=== PATIENT | female | born 1945 | race Caucasian/White ===

== ENCOUNTER 2024-02-28 20:17 | Inpatient (IN) | payer MEDICARE, MEDICAID ==
[~2024-02-28] VITALS: Ht 167.6 cm; Wt 76.7 kg
[2024-02-28 20:36] VITALS: PULSE 66; RESP 19; O2SAT 100
[2024-02-28] MEDS ORDERED: MIDAZOLAM 100MG/100ML PMX 100 ML IV PRN (20:45)
[2024-02-28] MEDS: ETOMIDATE 2MG/ML 10ML VIAL IV ONE (21:00)
[2024-02-28] MEDS: ROCURONIUM BROMIDE 10MG/ML VIAL 5ML IV ONE (21:00)
[2024-02-28 21:05] LABS: HEMATOCRIT. 38.1 % (36.0-48.0); HEMOGLOBIN. 11.1 g/dL (12.0-16.0); MEAN CORPUSCULAR HEMOGLOBIN 26.1 pg (28.0-32.0); MEAN CORPUSCULAR HGB CONC 29.2 g/dL (31.0-37.0); MEAN CORPUSCULAR VOLUME 89.2 fL (81.0-99.0); PLATELET 215 x1000/uL (130-400); RED BLOOD CELL COUNT 4.28 mill/uL (4.2-5.4); RED CELL DISTRIBUTION WIDTH 25.1 % (11.6-14.6); WHITE BLOOD COUNT 6.8 x1000/uL (4.5-11.0)
[2024-02-28 21:07] LABS: DIFFERENTIAL COMMENT 1
[2024-02-28 21:10] LABS: CHLORIDE 107 mEq/L (98-107); SODIUM 135 mEq/L (136-145)
[2024-02-28 21:11] LABS: CALCIUM 8.9 mg/dL (8.7-10.4); CARBON DIOXIDE 16 mEq/L (21-32)
[2024-02-28] MEDS: MIDAZOLAM 100MG/100ML PMX 100 ML IV PRN (21:12)
[2024-02-28 21:16] LABS: CREATININE 1.8 mg/dL (0.6-1.0); GLUCOSE 69 mg/dL (70-105); UREA NITROGEN BLOOD 32 mg/dL (9-23)
[2024-02-28 21:17] LABS: TROPONIN I HIGH SENSITIVITY 29 ng/L (3.0-34)
[2024-02-28] MEDS ORDERED: AZITHROMYCIN 500MG/250ML 250 ML IV STA (21:21)
[2024-02-28] MEDS: CEFTRIAXONE 1GM/50ML 50 ML IV NR (21:37)
[2024-02-28 21:42] LABS: BG BASE EXCESS -15.8 mmol/L (-2.0-3.0); BG CARBOXYHEMOGLOBIN 0.7 % (0.5-1.5); BG DEOXYHEMOGLOBIN 0.9 % (0.0-5.0); BG FRACTION INSPIRED OXYGEN 100; BG HCO3 ACT 13.5 mmol/L (21.0-28.0); BG METHEMOGLOBIN 0.1 % (0.5-1.5); BG OXYGEN SATURATION 99.1 % (94.0-98.0); BG OXYHEMOGLOBIN 98.3 % (94.0-98.0); BG PCO2 45.4 mmHg (32.0-45.0); BG PO2 165.4 mmHg (83.0-108.0); BG SAMPLE SITE LEFT RADIAL; BG TOTAL HEMOGLOBIN 11.7 g/dL (12.0-16.0); BG VENT MODE VENT - AC
[2024-02-28 21:42] LABS: PLATELET ESTIMATE NORMAL
[2024-02-28 21:43] LABS: ANISOCYTOSIS 2+
[2024-02-28 21:45] LABS: POTASSIUM 6.4 mEq/L (3.5-5.1)
[2024-02-28] MEDS: INSULIN REGULAR (HUMULIN R) 1000UNITS/10ML VIAL IV NR (21:51)
[2024-02-28] MEDS: DOXYCYCLINE 100MG/100ML 100 ML IV NR (22:08)
[2024-02-28] MEDS: ALBUTEROL (0.083%) 2.5MG/3ML NEB HHN SCH (22:38)
[2024-02-28 22:39] VITALS: PULSE 58; RESP 19; O2SAT 100
[2024-02-28 23:08] VITALS: PULSE 60; RESP 20; O2SAT 100
[2024-02-28] MEDS: DEXTROSE 50% WATER 50ML SYRINGE IV NR (23:09)
[2024-02-28] MEDS: CALCIUM GLUCONATE 1GM PREMIX 50 ML IV NR (23:09)
[2024-02-29] VITALS (74 sets, daily range): BP systolic 101–160; BP diastolic 49–78; PULSE 47–87; RESP 16–23; TEMP 36.44736–36.9474; O2SAT 90–100
[2024-02-29] MEDS: SODIUM BICARBONATE 8.4% 50MEQ/50ML SYR IV NR ×2 (00:08→05:44)
[2024-02-29 00:25] LABS: CALCIUM 8.7 mg/dL (8.7-10.4)
[2024-02-29 00:29] LABS: CREATININE 1.8 mg/dL (0.6-1.0)
[2024-02-29 01:02] LABS: POTASSIUM 6.2 mEq/L (3.5-5.1)
[2024-02-29] MEDS: DEXT 5%/0.9% NACL 1,000 ML IV SCH (01:58)
[2024-02-29] MEDS: SODIUM POLYSTYRENE SULFONATE 15 G/60 ML BOT PO NR (02:41)
[2024-02-29] MEDS: METRONIDAZOLE 500 MG PREMIX 100 ML IV SCH ×2 (05:09→16:14)
[2024-02-29] MEDS: CALCIUM CHLORIDE 1GM/10ML SYR IV NR (05:44)
[2024-02-29] MEDS: FUROSEMIDE 40MG/4ML VIAL IVP NR (05:44)
[2024-02-29] MEDS: INSULIN REGULAR (HUMULIN R) 1000UNITS/10ML VIAL IV NR (05:45)
[2024-02-29] MEDS ORDERED: DEXMEDETOMIDINE 400 MCG/100 ML 100 ML IV PRN (05:45)
[2024-02-29] MEDS: DEXTROSE 50% WATER 50ML SYRINGE IV NR (05:48)
[2024-02-29 06:29] LABS: BG BASE EXCESS -6.3 mmol/L (-2.0-3.0); BG CARBOXYHEMOGLOBIN 0.6 % (0.5-1.5); BG DEOXYHEMOGLOBIN 0.8 % (0.0-5.0); BG FRACTION INSPIRED OXYGEN 90; BG HCO3 ACT 20.5 mmol/L (21.0-28.0); BG METHEMOGLOBIN 0.3 % (0.5-1.5); BG OXYGEN SATURATION 99.2 % (94.0-98.0); BG OXYHEMOGLOBIN 98.3 % (94.0-98.0); BG PH 7.266 (7.350-7.450); BG PO2 152.3 mmHg (83.0-108.0); BG SAMPLE SITE RIGHT BRACHIAL; BG TOTAL HEMOGLOBIN 11.3 g/dL (12.0-16.0); BG TOTAL RESPIRATORY RATE 16 b/min; BG VENT MODE VENT - AC
[2024-02-29 06:31] LABS: CHLORIDE 108 mEq/L (98-107); POTASSIUM 5.6 mEq/L (3.5-5.1); SODIUM 139 mEq/L (136-145)
[2024-02-29 06:32] LABS: CALCIUM 8.8 mg/dL (8.7-10.4); CARBON DIOXIDE 19 mEq/L (21-32); HEMATOCRIT. 36.8 % (36.0-48.0); HEMOGLOBIN. 10.9 g/dL (12.0-16.0); MEAN CORPUSCULAR HGB CONC 29.6 g/dL (31.0-37.0); MEAN CORPUSCULAR VOLUME 87.8 fL (81.0-99.0); MEAN PLATELET VOLUME 7.9 fl (7.4-10.4); PLATELET 183 x1000/uL (130-400); RED CELL DISTRIBUTION WIDTH 24.9 % (11.6-14.6); WHITE BLOOD COUNT 9.1 x1000/uL (4.5-11.0)
[2024-02-29 06:36] LABS: IRON 29 ug/dL (50-170)
[2024-02-29 06:37] LABS: CREATININE 1.8 mg/dL (0.6-1.0); GLUCOSE 103 mg/dL (70-105); TRIGLYCERIDE 76 mg/dL (0-150)
[2024-02-29 06:38] LABS: ALANINE AMINOTRANSFERASE 133 IU/L (10-49); LDL CHOLESTEROL 63 mg/dL (5-100); PROTEIN TOTAL 8.2 g/dL (6.0-8.3); TOTAL IRON BINDING CAPACITY 165 ug/dl (250-425); UREA NITROGEN BLOOD 33 mg/dL (9-23)
[2024-02-29 06:39] LABS: ASPARTATE AMINOTRANSFERASE 693 IU/L (<34); BILIRUBIN DIRECT 0.8 mg/dL (<=3.0); CHOLESTEROL 103 mg/dL (<200); HDL CHOLESTEROL 21 mg/dL (>65); PHOSPHORUS 5.1 mg/dL (2.5-4.9); T4 FREE 1.29 ng/dL (0.89-1.76)
[2024-02-29 06:40] LABS: BILIRUBIN TOTAL 1.3 mg/dL (0.1-1.0); THYROID STIMULATING HORMONE 3.49 uIU/mL (0.55-4.78)
[2024-02-29] MEDS ORDERED: MIDAZOLAM 100MG/100ML PMX 100 ML IV PRN (07:00)
[2024-02-29] MEDS: VANCOMYCIN 1.25GM PMX (XELLIA) 250 ML IV NR (08:03)
[2024-02-29 08:31] LABS: DIFFERENTIAL COMMENT 1
[2024-02-29] MEDS: IPRATROPIUM/ALBUTEROL 0.5-3(2.5)MG/3ML NEB HHN SCH (08:54)
[2024-02-29 09:09] LABS: BG BASE EXCESS -8.6 mmol/L (-2.0-3.0); BG CARBOXYHEMOGLOBIN 0.9 % (0.5-1.5); BG DEOXYHEMOGLOBIN 2.7 % (0.0-5.0); BG FRACTION INSPIRED OXYGEN 90; BG HCO3 ACT 18.3 mmol/L (21.0-28.0); BG METHEMOGLOBIN 0.3 % (0.5-1.5); BG OXYGEN SATURATION 97.3 % (94.0-98.0); BG OXYHEMOGLOBIN 96.1 % (94.0-98.0); BG PCO2 43.4 mmHg (32.0-45.0); BG PH 7.244 (7.350-7.450); BG SAMPLE SITE RIGHT BRACHIAL; BG TOTAL HEMOGLOBIN 11.3 g/dL (12.0-16.0)
[2024-02-29 09:21] LABS: *AMPHETAMINES SCREEN URINE NEGATIVE (NEGATIVE)
[2024-02-29 09:22] LABS: *BARBITURATES SCREEN URINE NEGATIVE (NEGATIVE); *BENZODIAZEPINES SCREEN URINE PRESUMPTIVE POSITIVE (NEGATIVE); *COCAINE SCREEN URINE NEGATIVE (NEGATIVE); CANNABINOID URINE SCREEN NEGATIVE (NEGATIVE); ECSTASY MDMA SCREEN URINE NEGATIVE (NEGATIVE); METHADONE URINE SCREEN NEGATIVE (NEGATIVE); OPIATES URINE SCREEN NEGATIVE (NEGATIVE); PHENCYCLIDINE URINE SCREEN NEGATIVE (NEGATIVE)
[2024-02-29] MEDS: FAMOTIDINE 20MG/2ML VIAL IV SCH (09:58)
[2024-02-29 09:59] LABS: LACTIC ACID 4.4 mmol/L (0.4-2.0)
[2024-02-29] MEDS: HEPARIN 5000 UNITS/ML VIAL SUBCUT SCH (09:59)
[2024-02-29] MEDS: DOXYCYCLINE 100MG/100ML 100 ML IV SCH (12:39)
[2024-02-29] MEDS: SODIUM CHLORIDE 3% FOR INH 15ML NEB INH SCH (12:47)
[2024-02-29 13:59] LABS: CALCIUM 8.8 mg/dL (8.7-10.4)
[2024-02-29 14:03] LABS: CREATININE 1.9 mg/dL (0.6-1.0)
[2024-02-29] MEDS: ACETYLCYSTEINE 200MG/ML 20% VIAL 4ML INH SCH (16:50)
[2024-02-29 17:03] LABS: ANISOCYTOSIS 4+; OVALOCYTES 1+; PLATELET ESTIMATE NORMAL
[2024-02-29 17:11] LABS: INR 1.8; PARTIAL THROMBOPLASTIN TIME 35.6 sec (23.4-31.0); PROTHROMBIN TIME 19.5 sec (9.6-11.0)
[2024-02-29] MEDS ORDERED: CEFTRIAXONE 1GM/50ML 50 ML IV SCH (21:00)
[2024-03-01] VITALS (107 sets, daily range): BP systolic 105–143; BP diastolic 48–91; PULSE 76–95; RESP 16–25; TEMP 36.50292–36.72516; O2SAT 89–100
[2024-03-01] MEDS: CEFTRIAXONE 1GM/50ML 50 ML IV SCH (01:47)
[2024-03-01] MEDS: VANCOMYCIN 750MG/150ML (BAXTER) IV SCH (09:00)
[2024-03-01 09:13] LABS: CLARITY URINE TURBID (CLEAR); COLOR URINE DARK YELLOW (YELLOW); GLUCOSE URINE NEGATIVE (NEGATIVE); KETONES URINE NEGATIVE (NEGATIVE); LEUKOCYTE ESTERASE URINE 2+ (NEGATIVE); NITRITE URINE NEGATIVE (NEGATIVE); OCCULT BLOOD URINE 3+ (NEGATIVE); PROTEIN URINE 1+ (NEGATIVE); SPECIFIC GRAVITY URINE 1.016 (1.005-1.030)
[2024-03-01 09:39] LABS: CREATININE URINE RANDOM 48.8 mg/dL
[2024-03-01 09:49] LABS: SQUAMOUS EPITHELIAL CELL URINE NONE SEEN /lpf (RARE/1+); YEAST URINE 2+
[2024-03-01 09:50] LABS: BACTERIA URINE 2+; RBC URINE 25-50 /hpf (0-2)
[2024-03-01 09:51] LABS: MUCUS URINE TRACE /lpf (< = 2+)
[2024-03-01 10:09] LABS: BG BASE EXCESS -3.6 mmol/L (-2.0-3.0); BG CARBOXYHEMOGLOBIN 0.3 % (0.5-1.5); BG DEOXYHEMOGLOBIN 0.7 % (0.0-5.0); BG FRACTION INSPIRED OXYGEN 80; BG HCO3 ACT 20.5 mmol/L (21.0-28.0); BG OXYGEN SATURATION 99.3 % (94.0-98.0); BG PCO2 33.4 mmHg (32.0-45.0); BG PH 7.405 (7.350-7.450); BG PO2 148.4 mmHg (83.0-108.0); BG SAMPLE SITE LEFT RADIAL; BG TOTAL RESPIRATORY RATE 20 b/min; BG VENT MODE VENT - AC
[2024-03-01] MEDS: DOXYCYCLINE 100MG/100ML 100 ML IV SCH (11:29)
[2024-03-01] MEDS: SODIUM CHLORIDE 0.9% 1,000 ML IV SCH (13:00)
[2024-03-01 13:36] LABS: HEMATOCRIT. 35.8 % (36.0-48.0); HEMOGLOBIN. 10.5 g/dL (12.0-16.0); MEAN CORPUSCULAR HEMOGLOBIN 25.3 pg (28.0-32.0); MEAN CORPUSCULAR HGB CONC 29.2 g/dL (31.0-37.0); MEAN CORPUSCULAR VOLUME 86.6 fL (81.0-99.0); MEAN PLATELET VOLUME 7.6 fl (7.4-10.4); PLATELET 146 x1000/uL (130-400); RED BLOOD CELL COUNT 4.14 mill/uL (4.2-5.4); RED CELL DISTRIBUTION WIDTH 25.2 % (11.6-14.6); WHITE BLOOD COUNT 15.9 x1000/uL (4.5-11.0)
[2024-03-01 13:43] LABS: DIFFERENTIAL COMMENT 1; POTASSIUM 5.8 mEq/L (3.5-5.1)
[2024-03-01 13:44] LABS: CALCIUM 8.6 mg/dL (8.7-10.4)
[2024-03-01 13:46] LABS: INR 1.9; PROTHROMBIN TIME 20.1 sec (9.6-11.0)
[2024-03-01 13:49] LABS: CREATININE 1.8 mg/dL (0.6-1.0)
[2024-03-01] MEDS ORDERED: ALBUTEROL (0.083%) 2.5MG/3ML NEB HHN NR (14:00)
[2024-03-01] MEDS: SODIUM BICARBONATE 8.4% 50MEQ/50ML SYR IV NR (14:15)
[2024-03-01] MEDS: CALCIUM CHLORIDE 1GM/10ML SYR IV NR (14:15)
[2024-03-01] MEDS: SODIUM ZIRCONIUM CYCLOSILICATE 10GM/PACKET PO NR (16:09)
[2024-03-01 20:07] LABS: ANISOCYTOSIS 4+; GIANT PLATELETS 1+; PLATELET ESTIMATE NORMAL
[2024-03-01 20:08] LABS: OVALOCYTES 1+
[2024-03-01 21:29] LABS: POTASSIUM 4.7 mEq/L (3.5-5.1)
[2024-03-01] MEDS: CEFTRIAXONE 1GM/50ML 50ML IV SCH (21:42)
[2024-03-02] VITALS (107 sets, daily range): BP systolic 98–147; BP diastolic 49–111; PULSE 58–91; RESP 18–25; TEMP 35.89176–36.78072; O2SAT 80–100
[2024-03-02] MEDS: SODIUM CHLORIDE 3% FOR INH 4ML NEB INH SCH (00:26)
[2024-03-02 05:33] LABS: HEMATOCRIT 29.2 % (36.0-48.0); HEMOGLOBIN 9.3 g/dL (12.0-16.0); MEAN CORPUSCULAR HGB CONC 32.1 g/dL (31.0-37.0); PLATELET 151 x1000/uL (130-400); RED CELL DISTRIBUTION WIDTH 24.7 % (11.6-14.6); WHITE BLOOD COUNT 7.4 x1000/uL (4.5-11.0)
[2024-03-02 05:41] LABS: CHLORIDE 112 mEq/L (98-107); POTASSIUM 4.4 mEq/L (3.5-5.1); SODIUM 142 mEq/L (136-145)
[2024-03-02 05:43] LABS: CALCIUM 8.5 mg/dL (8.7-10.4); CARBON DIOXIDE 23 mEq/L (21-32)
[2024-03-02 05:48] LABS: CREATININE 1.4 mg/dL (0.6-1.0); GLUCOSE 108 mg/dL (70-105); UREA NITROGEN BLOOD 35 mg/dL (9-23)
[2024-03-02 05:50] LABS: ALANINE AMINOTRANSFERASE 194 IU/L (10-49); ALBUMIN 2.3 g/dL (3.2-4.8); ASPARTATE AMINOTRANSFERASE 544 IU/L (<34); BILIRUBIN TOTAL 1.3 mg/dL (0.1-1.0); PHOSPHORUS 2.5 mg/dL (2.5-4.9); PROTEIN TOTAL 6.5 g/dL (6.0-8.3)
[2024-03-02 18:05] LABS: AMMONIA 20 uMol/L (<32)
[2024-03-03] VITALS (103 sets, daily range): BP systolic 83–147; BP diastolic 41–95; PULSE 27–93; RESP 16–24; TEMP 36.78072–37.44744; O2SAT 91–100
[2024-03-03 04:56] LABS: HEMATOCRIT 34.3 % (36.0-48.0); HEMOGLOBIN 10.5 g/dL (12.0-16.0); MEAN CORPUSCULAR HEMOGLOBIN 26.1 pg (28.0-32.0); MEAN CORPUSCULAR HGB CONC 30.6 g/dL (31.0-37.0); MEAN CORPUSCULAR VOLUME 85.3 fL (81.0-99.0); PLATELET 116 x1000/uL (130-400); RED BLOOD CELL COUNT 4.03 mill/uL (4.2-5.4); RED CELL DISTRIBUTION WIDTH 25.4 % (11.6-14.6); WHITE BLOOD COUNT 8.5 x1000/uL (4.5-11.0)
[2024-03-03 05:24] LABS: CHLORIDE 115 mEq/L (98-107); POTASSIUM 4.3 mEq/L (3.5-5.1); SODIUM 144 mEq/L (136-145)
[2024-03-03 05:25] LABS: CALCIUM 8.8 mg/dL (8.7-10.4); CARBON DIOXIDE 21 mEq/L (21-32)
[2024-03-03 05:30] LABS: CREATININE 1.2 mg/dL (0.6-1.0); GLUCOSE 94 mg/dL (70-105); UREA NITROGEN BLOOD 29 mg/dL (9-23)
[2024-03-03 05:31] LABS: ALBUMIN 2.3 g/dL (3.2-4.8); LACTATE DEHYDROGENASE 237 IU/L (120-246)
[2024-03-03 05:32] LABS: PHOSPHORUS 2.5 mg/dL (2.5-4.9)
[2024-03-03] MEDS ORDERED: MICAFUNGIN 100 MG in SODIUM CHLORIDE 0.9% 100 ML IV SCH (08:30)
[2024-03-03 11:55] LABS: INR 1.5; PROTHROMBIN TIME 16.7 sec (9.6-11.0)
[2024-03-03] MEDS: DEXMEDETOMIDINE 400 MCG/100 ML 100 ML IV PRN (11:59)
[2024-03-03] MEDS: SODIUM CHLORIDE 0.9% 500 ML IV ONE (13:38)
[2024-03-03] MEDS: FLUCONAZOLE 200 MG/100ML BAG 100 ML IV SCH (13:39)
[2024-03-03] MEDS: MIDODRINE HCL 5MG TABLET PO SCH (14:59)
[2024-03-03 16:17] LABS: PROTEIN BODY FLUID 2.8 gm/dL
[2024-03-03 21:59] LABS: BODY FLUID MONOCYTES 3 %; BODY FLUID RBC 1020 /cu mm (0-2000); BODY FLUID WBC 255 /cu mm (0-200)
[2024-03-04] VITALS (96 sets, daily range): BP systolic 90–156; BP diastolic 43–101; PULSE 44–89; RESP 16–25; TEMP 36.83628–37.16964; O2SAT 82–100
[2024-03-04 05:39] LABS: BASOPHILS % 0.5 % (0.0-2.0); EOSINOPHILS % 1.3 % (0.0-5.0); HEMATOCRIT. 32.6 % (36.0-48.0); HEMOGLOBIN. 10.1 g/dL (12.0-16.0); LYMPHOCYTES % 8.9 % (20.0-50.0); MEAN CORPUSCULAR HEMOGLOBIN 26.2 pg (28.0-32.0); MEAN CORPUSCULAR HGB CONC 30.9 g/dL (31.0-37.0); MEAN CORPUSCULAR VOLUME 84.8 fL (81.0-99.0); MEAN PLATELET VOLUME 8.2 fl (7.4-10.4); MONOCYTES % 10.5 % (2.0-8.0); NEUTROPHILS % 78.8 % (40.0-76.0); PLATELET 141 x1000/uL (130-400); RED BLOOD CELL COUNT 3.84 mill/uL (4.2-5.4); RED CELL DISTRIBUTION WIDTH 25.3 % (11.6-14.6); WHITE BLOOD COUNT 6.3 x1000/uL (4.5-11.0)
[2024-03-04 05:51] LABS: CHLORIDE 116 mEq/L (98-107); POTASSIUM 4.1 mEq/L (3.5-5.1); SODIUM 144 mEq/L (136-145)
[2024-03-04 05:55] LABS: CARBON DIOXIDE 22 mEq/L (21-32)
[2024-03-04 05:56] LABS: CALCIUM 8.5 mg/dL (8.7-10.4)
[2024-03-04 05:59] LABS: ALANINE AMINOTRANSFERASE 88 IU/L (10-49)
[2024-03-04 06:00] LABS: CREATININE 1.1 mg/dL (0.6-1.0); GLUCOSE 112 mg/dL (70-105)
[2024-03-04 06:01] LABS: UREA NITROGEN BLOOD 33 mg/dL (9-23)
[2024-03-04 06:02] LABS: ALBUMIN 2.2 g/dL (3.2-4.8); ASPARTATE AMINOTRANSFERASE 132 IU/L (<34)
[2024-03-04 06:03] LABS: PHOSPHORUS 2.6 mg/dL (2.5-4.9); PROTEIN TOTAL 6.4 g/dL (6.0-8.3)
[2024-03-04 06:24] LABS: DIFFERENTIAL COMMENT 1
[2024-03-04 07:44] LABS: INR 1.4; PROTHROMBIN TIME 15.6 sec (9.6-11.0)
[2024-03-04] MEDS: DOPAMINE 400MG/250ML PREMIX 250 ML IV PRN (09:51)
[2024-03-04 09:55] LABS: BG BASE EXCESS -1.3 mmol/L (-2.0-3.0); BG FRACTION INSPIRED OXYGEN 50; BG HCO3 ACT 22.7 mmol/L (21.0-28.0); BG PCO2 36.1 mmHg (32.0-45.0); BG PH 7.416 (7.350-7.450); BG PO2 98.6 mmHg (83.0-108.0); BG SAMPLE SITE RIGHT RADIAL; BG VENT MODE VENT - AC
[2024-03-04] MEDS: IPRATROPIUM/ALBUTEROL 0.5-3(2.5)MG/3ML NEB HHN PRN (09:55)
[2024-03-04] MEDS: MIDODRINE HCL 5MG TABLET PO SCH (14:00)
[2024-03-04 14:54] LABS: PROTEIN BODY FLUID 2.8 gm/dL
[2024-03-04 20:27] LABS: BODY FLUID MONOCYTES 3 %; BODY FLUID RBC 6038 /cu mm (0-2000); BODY FLUID WBC 150 /cu mm (0-200)
[2024-03-05] VITALS (91 sets, daily range): BP systolic 95–178; BP diastolic 46–127; PULSE 54–81; RESP 16–24; TEMP 36.33624–37.11408; O2SAT 94–100
[2024-03-05 05:32] LABS: HEMATOCRIT 35.5 % (36.0-48.0); HEMOGLOBIN 10.7 g/dL (12.0-16.0); MEAN CORPUSCULAR HEMOGLOBIN 25.7 pg (28.0-32.0); MEAN CORPUSCULAR HGB CONC 30.2 g/dL (31.0-37.0); MEAN CORPUSCULAR VOLUME 85.1 fL (81.0-99.0); PLATELET 143 x1000/uL (130-400); RED BLOOD CELL COUNT 4.17 mill/uL (4.2-5.4); RED CELL DISTRIBUTION WIDTH 24.8 % (11.6-14.6); WHITE BLOOD COUNT 7.9 x1000/uL (4.5-11.0)
[2024-03-05 05:43] LABS: CHLORIDE 115 mEq/L (98-107); SODIUM 144 mEq/L (136-145)
[2024-03-05 05:45] LABS: CARBON DIOXIDE 20 mEq/L (21-32)
[2024-03-05 05:46] LABS: CALCIUM 8.8 mg/dL (8.7-10.4)
[2024-03-05 05:50] LABS: CREATININE 1.1 mg/dL (0.6-1.0); GLUCOSE 105 mg/dL (70-105)
[2024-03-05 05:51] LABS: ALANINE AMINOTRANSFERASE 73 IU/L (10-49); UREA NITROGEN BLOOD 32 mg/dL (9-23)
[2024-03-05 05:52] LABS: ALBUMIN 2.4 g/dL (3.2-4.8); ASPARTATE AMINOTRANSFERASE 87 IU/L (<34)
[2024-03-05 05:53] LABS: BILIRUBIN TOTAL 0.9 mg/dL (0.1-1.0); PHOSPHORUS 2.8 mg/dL (2.5-4.9); PROTEIN TOTAL 7.1 g/dL (6.0-8.3)
[2024-03-05 10:13] LABS: BG BASE EXCESS -3.9 mmol/L (-2.0-3.0); BG CARBOXYHEMOGLOBIN 0.6 % (0.5-1.5); BG DEOXYHEMOGLOBIN 5.6 % (0.0-5.0); BG FRACTION INSPIRED OXYGEN 40; BG HCO3 ACT 20.7 mmol/L (21.0-28.0); BG METHEMOGLOBIN 0.3 % (0.5-1.5); BG OXYGEN SATURATION 94.3 % (94.0-98.0); BG OXYHEMOGLOBIN 93.5 % (94.0-98.0); BG PCO2 35.8 mmHg (32.0-45.0); BG PH 7.379 (7.350-7.450); BG PO2 74.3 mmHg (83.0-108.0); BG SAMPLE SITE LEFT RADIAL; BG TOTAL HEMOGLOBIN 10.6 g/dL (12.0-16.0); BG VENT MODE VENT - AC
[2024-03-06] VITALS (82 sets, daily range): BP systolic 92–157; BP diastolic 41–123; PULSE 52–72; RESP 15–25; TEMP 36.61404–37.66968; O2SAT 93–100
[2024-03-06 04:43] LABS: CHLORIDE 118 mEq/L (98-107); POTASSIUM 3.8 mEq/L (3.5-5.1)
[2024-03-06 04:44] LABS: SODIUM 148 mEq/L (136-145)
[2024-03-06 04:45] LABS: CARBON DIOXIDE 23 mEq/L (21-32)
[2024-03-06 04:46] LABS: CALCIUM 8.6 mg/dL (8.7-10.4)
[2024-03-06 04:49] LABS: HEMATOCRIT 31.6 % (36.0-48.0); HEMOGLOBIN 9.7 g/dL (12.0-16.0); MEAN CORPUSCULAR HEMOGLOBIN 25.8 pg (28.0-32.0); MEAN CORPUSCULAR HGB CONC 30.8 g/dL (31.0-37.0); MEAN CORPUSCULAR VOLUME 83.6 fL (81.0-99.0); PLATELET 134 x1000/uL (130-400); RED BLOOD CELL COUNT 3.78 mill/uL (4.2-5.4); RED CELL DISTRIBUTION WIDTH 24.8 % (11.6-14.6); WHITE BLOOD COUNT 7.1 x1000/uL (4.5-11.0)
[2024-03-06 04:51] LABS: GLUCOSE 109 mg/dL (70-105); UREA NITROGEN BLOOD 37 mg/dL (9-23)
[2024-03-06 04:52] LABS: ALANINE AMINOTRANSFERASE 44 IU/L (10-49); ALBUMIN 2.1 g/dL (3.2-4.8); ASPARTATE AMINOTRANSFERASE 48 IU/L (<34)
[2024-03-06 04:53] LABS: BILIRUBIN TOTAL 0.7 mg/dL (0.1-1.0); PHOSPHORUS 3.1 mg/dL (2.5-4.9); PROTEIN TOTAL 6.1 g/dL (6.0-8.3)
[2024-03-06] MEDS: SODIUM BICARBONATE 4% 2.4MEQ/5ML VIAL IV ONE (08:37)
[2024-03-06] MEDS: LIDOCAINE HCL 1% 10 MG/ML 10ML VIAL ONE (08:37)
[2024-03-06] MEDS: POLYETHYLENE GLYCOL 3350 (17GM) 1 DOSE PACK PO SCH (09:19)
[2024-03-06 09:39] LABS: BG BASE EXCESS -2.7 mmol/L (-2.0-3.0); BG CARBOXYHEMOGLOBIN 0.8 % (0.5-1.5); BG DEOXYHEMOGLOBIN 2.5 % (0.0-5.0); BG FRACTION INSPIRED OXYGEN 40; BG HCO3 ACT 21.5 mmol/L (21.0-28.0); BG METHEMOGLOBIN 0.3 % (0.5-1.5); BG OXYGEN SATURATION 97.5 % (94.0-98.0); BG OXYHEMOGLOBIN 96.4 % (94.0-98.0); BG PCO2 35.2 mmHg (32.0-45.0); BG PH 7.404 (7.350-7.450); BG PO2 90.4 mmHg (83.0-108.0); BG SAMPLE SITE LEFT RADIAL; BG TOTAL HEMOGLOBIN 10.4 g/dL (12.0-16.0); BG TOTAL RESPIRATORY RATE 26 b/min; BG VENT MODE VENT - AC
[2024-03-06 12:18] LABS: BG BASE EXCESS -2.8 mmol/L (-2.0-3.0); BG CARBOXYHEMOGLOBIN 0.4 % (0.5-1.5); BG FRACTION INSPIRED OXYGEN 40; BG METHEMOGLOBIN 0.3 % (0.5-1.5); BG OXYHEMOGLOBIN 95.3 % (94.0-98.0); BG PCO2 32.9 mmHg (32.0-45.0); BG PH 7.423 (7.350-7.450); BG PO2 80.8 mmHg (83.0-108.0); BG SAMPLE SITE LEFT RADIAL; BG TOTAL HEMOGLOBIN 10.2 g/dL (12.0-16.0); BG VENT MODE VENT - CPAP
[2024-03-06] MEDS: METHYLPREDNISOLONE SOD SUCC 125MG/2ML (ACT-O-VIAL) IV NR (16:11)
[2024-03-06] MEDS ORDERED: HEPARIN 5000 UNITS/ML VIAL IV NR (18:00)
[2024-03-06 20:51] LABS: INR 1.2; PARTIAL THROMBOPLASTIN TIME 29.6 sec (23.4-31.0); PROTHROMBIN TIME 13.2 sec (9.6-11.0)
[2024-03-06] MEDS: HEPARIN 5000 UNITS/ML VIAL IV NR (22:02)
[2024-03-06] MEDS: MIDODRINE HCL 5MG TABLET PO SCH (22:07)
[2024-03-06] MEDS: METHYLPREDNISOLONE SOD SUCC 40MG/ML (ACT-O-VIAL) IV SCH (22:10)
[2024-03-06] MEDS: HEPARIN 25,000 UNITS PREMIX 250 ML IV PRN (22:13)
[2024-03-07] VITALS (90 sets, daily range): BP systolic 127–185; BP diastolic 43–83; PULSE 8–94; RESP 14–26; TEMP 36.89184–37.05852; O2SAT 89–100
[2024-03-07] MEDS ORDERED: HEPARIN 5000 UNITS/ML VIAL IV PRN ×2 (03:00)
[2024-03-07 04:01] LABS: CARBON DIOXIDE 22 mEq/L (21-32); CHLORIDE 117 mEq/L (98-107); POTASSIUM 3.9 mEq/L (3.5-5.1); SODIUM 147 mEq/L (136-145)
[2024-03-07 04:02] LABS: CALCIUM 8.8 mg/dL (8.7-10.4)
[2024-03-07 04:05] LABS: HEMATOCRIT 36.2 % (36.0-48.0); HEMOGLOBIN 10.7 g/dL (12.0-16.0); MEAN CORPUSCULAR HEMOGLOBIN 24.8 pg (28.0-32.0); MEAN CORPUSCULAR HGB CONC 29.4 g/dL (31.0-37.0); MEAN CORPUSCULAR VOLUME 84.2 fL (81.0-99.0); PLATELET 165 x1000/uL (130-400); WHITE BLOOD COUNT 6.2 x1000/uL (4.5-11.0)
[2024-03-07 04:07] LABS: CREATININE 1.1 mg/dL (0.6-1.0); GLUCOSE 196 mg/dL (70-105); UREA NITROGEN BLOOD 40 mg/dL (9-23)
[2024-03-07 04:08] LABS: ALANINE AMINOTRANSFERASE 41 IU/L (10-49)
[2024-03-07 04:09] LABS: ALBUMIN 2.7 g/dL (3.2-4.8); ASPARTATE AMINOTRANSFERASE 44 IU/L (<34); BILIRUBIN TOTAL 0.8 mg/dL (0.1-1.0); PHOSPHORUS 3.5 mg/dL (2.5-4.9); PROTEIN TOTAL 7.3 g/dL (6.0-8.3)
[2024-03-07] MEDS: DEXMEDETOMIDINE 400 MCG/100 ML 100 ML IV PRN (08:46)
[2024-03-07 09:25] LABS: BG BASE EXCESS -2.7 mmol/L (-2.0-3.0); BG CARBOXYHEMOGLOBIN 0.3 % (0.5-1.5); BG DEOXYHEMOGLOBIN 6.1 % (0.0-5.0); BG FRACTION INSPIRED OXYGEN 40; BG HCO3 ACT 23.1 mmol/L (21.0-28.0); BG METHEMOGLOBIN 0.3 % (0.5-1.5); BG OXYGEN SATURATION 93.9 % (94.0-98.0); BG OXYHEMOGLOBIN 93.3 % (94.0-98.0); BG PCO2 44.4 mmHg (32.0-45.0); BG PH 7.335 (7.350-7.450); BG PO2 74.9 mmHg (83.0-108.0); BG SAMPLE SITE LEFT RADIAL; BG TOTAL HEMOGLOBIN 12.1 g/dL (12.0-16.0); BG TOTAL RESPIRATORY RATE 29 b/min; BG VENT MODE VENT - SIMV
[2024-03-07 15:15] LABS: BG BASE EXCESS -2.9 mmol/L (-2.0-3.0); BG CARBOXYHEMOGLOBIN 0.8 % (0.5-1.5); BG DEOXYHEMOGLOBIN 5.1 % (0.0-5.0); BG FRACTION INSPIRED OXYGEN 40; BG HCO3 ACT 21.6 mmol/L (21.0-28.0); BG METHEMOGLOBIN 0.3 % (0.5-1.5); BG OXYGEN SATURATION 94.8 % (94.0-98.0); BG OXYHEMOGLOBIN 93.8 % (94.0-98.0); BG PCO2 36.7 mmHg (32.0-45.0); BG PH 7.388 (7.350-7.450); BG PO2 76.9 mmHg (83.0-108.0); BG SAMPLE SITE LEFT RADIAL; BG TOTAL HEMOGLOBIN 11.1 g/dL (12.0-16.0); BG VENT MODE VENT - CPAP
[2024-03-08] VITALS (88 sets, daily range): BP systolic 143–180; BP diastolic 30–65; PULSE 48–89; RESP 15–24; TEMP 36.33624–37.2252; O2SAT 94–100
[2024-03-08] MEDS: ZINC OXIDE 20% OINT 30GM TOP PRN (05:56)
[2024-03-08 06:48] LABS: CHLORIDE 115 mEq/L (98-107); POTASSIUM 3.9 mEq/L (3.5-5.1); SODIUM 147 mEq/L (136-145)
[2024-03-08 06:51] LABS: CARBON DIOXIDE 22 mEq/L (21-32)
[2024-03-08 06:52] LABS: CALCIUM 8.3 mg/dL (8.7-10.4)
[2024-03-08 06:56] LABS: GLUCOSE 186 mg/dL (70-105)
[2024-03-08 06:57] LABS: ALANINE AMINOTRANSFERASE 32 IU/L (10-49); UREA NITROGEN BLOOD 46 mg/dL (9-23)
[2024-03-08 06:58] LABS: ALBUMIN 2.5 g/dL (3.2-4.8); ASPARTATE AMINOTRANSFERASE 32 IU/L (<34)
[2024-03-08 06:59] LABS: BILIRUBIN TOTAL 0.7 mg/dL (0.1-1.0); PHOSPHORUS 3.4 mg/dL (2.5-4.9); PROTEIN TOTAL 6.7 g/dL (6.0-8.3)
[2024-03-08 07:00] LABS: HEMOGLOBIN 10.1 g/dL (12.0-16.0); MEAN CORPUSCULAR HEMOGLOBIN 26.2 pg (28.0-32.0); MEAN CORPUSCULAR HGB CONC 31.6 g/dL (31.0-37.0); MEAN CORPUSCULAR VOLUME 82.9 fL (81.0-99.0); PLATELET 160 x1000/uL (130-400); RED BLOOD CELL COUNT 3.86 mill/uL (4.2-5.4); RED CELL DISTRIBUTION WIDTH 24.6 % (11.6-14.6); WHITE BLOOD COUNT 5.6 x1000/uL (4.5-11.0)
[2024-03-08 09:22] LABS: BG BASE EXCESS -4.7 mmol/L (-2.0-3.0); BG CARBOXYHEMOGLOBIN 0.8 % (0.5-1.5); BG DEOXYHEMOGLOBIN 5.4 % (0.0-5.0); BG FRACTION INSPIRED OXYGEN 40; BG HCO3 ACT 19.4 mmol/L (21.0-28.0); BG METHEMOGLOBIN 0.3 % (0.5-1.5); BG OXYGEN SATURATION 94.5 % (94.0-98.0); BG OXYHEMOGLOBIN 93.5 % (94.0-98.0); BG PCO2 32.4 mmHg (32.0-45.0); BG PH 7.394 (7.350-7.450); BG PO2 75.1 mmHg (83.0-108.0); BG SAMPLE SITE LEFT FEMORAL; BG TOTAL HEMOGLOBIN 11.9 g/dL (12.0-16.0); BG VENT MODE VENT - AC
[2024-03-08] MEDS: AMLODIPINE 5MG TABLET PO NR (11:26)
[2024-03-08 14:25] LABS: BG BASE EXCESS -2.9 mmol/L (-2.0-3.0); BG CARBOXYHEMOGLOBIN 0.7 % (0.5-1.5); BG DEOXYHEMOGLOBIN 8.2 % (0.0-5.0); BG FRACTION INSPIRED OXYGEN 40; BG HCO3 ACT 21.2 mmol/L (21.0-28.0); BG METHEMOGLOBIN 0.3 % (0.5-1.5); BG OXYGEN SATURATION 91.7 % (94.0-98.0); BG OXYHEMOGLOBIN 90.8 % (94.0-98.0); BG PCO2 34.6 mmHg (32.0-45.0); BG PH 7.406 (7.350-7.450); BG PO2 65.9 mmHg (83.0-108.0); BG SAMPLE SITE LEFT RADIAL; BG TOTAL HEMOGLOBIN 11.2 g/dL (12.0-16.0); BG VENT MODE VENT - CPAP
[2024-03-08] MEDS ORDERED: HYDRALAZINE 20MG/ML VIAL IV PRN (19:45)
[2024-03-08] MEDS: SENNOSIDES/DOCUSATE SOD 8.6/50MG TABLET PO SCH (21:56)
[2024-03-09] VITALS (119 sets, daily range): BP systolic 73–197; BP diastolic 15–68; PULSE 69–94; RESP 1–28; TEMP 36.6696–37.11408; O2SAT 83–100
[2024-03-09 05:23] LABS: POTASSIUM 3.7 mEq/L (3.5-5.1)
[2024-03-09 05:24] LABS: CALCIUM 7.7 mg/dL (8.7-10.4)
[2024-03-09 05:28] LABS: CREATININE 1.1 mg/dL (0.6-1.0)
[2024-03-09 05:46] LABS: HEMATOCRIT 22.5 % (36.0-48.0); HEMOGLOBIN 7.2 g/dL (12.0-16.0); MEAN CORPUSCULAR HEMOGLOBIN 26.7 pg (28.0-32.0); MEAN CORPUSCULAR HGB CONC 32.2 g/dL (31.0-37.0); MEAN CORPUSCULAR VOLUME 82.7 fL (81.0-99.0); PLATELET 180 x1000/uL (130-400); RED BLOOD CELL COUNT 2.72 mill/uL (4.2-5.4); RED CELL DISTRIBUTION WIDTH 24.7 % (11.6-14.6); WHITE BLOOD COUNT 8.8 x1000/uL (4.5-11.0)
[2024-03-09] MEDS: AMLODIPINE 5MG TABLET PO SCH (09:00)
[2024-03-09] MEDS: NOREPINEPHRINE 8MG/250ML PMX 250 ML IV PRN (09:58)
[2024-03-09] MEDS: PANTOPRAZOLE SODIUM 40 MG/VIAL IV SCH (11:04)
[2024-03-09 11:07] LABS: HEMATOCRIT 20.5 % (36.0-48.0); HEMOGLOBIN 6.3 g/dL (12.0-16.0)
[2024-03-09] MEDS ORDERED: OCTREOTIDE 1,000 MCG in SODIUM CHLORIDE 0.9% 100 ML IV ONE (11:30)
[2024-03-09] MEDS ORDERED: OCTREOTIDE ACETATE 50 MCG/ML 1ML IV NR (12:30)
[2024-03-09 12:52] LABS: INR 1.3; PROTHROMBIN TIME 14.4 sec (9.6-11.0)
[2024-03-09 12:57] LABS: BG BASE EXCESS -8.4 mmol/L (-2.0-3.0); BG CARBOXYHEMOGLOBIN 1.2 % (0.5-1.5); BG FRACTION INSPIRED OXYGEN 100; BG METHEMOGLOBIN 0.3 % (0.5-1.5); BG OXYHEMOGLOBIN 98.5 % (94.0-98.0); BG PCO2 33.9 mmHg (32.0-45.0); BG PH 7.318 (7.350-7.450); BG PO2 339.3 mmHg (83.0-108.0); BG SAMPLE SITE RIGHT BRACHIAL; BG TOTAL HEMOGLOBIN 6.3 g/dL (12.0-16.0); BG VENT MODE VENT - AC
[2024-03-09] MEDS: PIPERACILLIN/TAZO 3.375G/50ML 50 ML IV SCH (13:21)
[2024-03-09] MEDS: PANTOPRAZOLE 80 MG in SODIUM CHLORIDE 0.9% 100 ML IV SCH (13:40)
[2024-03-09] MEDS: OCTREOTIDE ACETATE 50 MCG/ML 1ML IV NR (13:40)
[2024-03-09] MEDS: OCTREOTIDE 1,000 MCG in SODIUM CHLORIDE 0.9% 98 ML IV SCH (13:41)
[2024-03-09] MEDS: LACTULOSE 20G/30ML UDC PO SCH (17:48)
[2024-03-09 21:26] LABS: HEMOGLOBIN 8.1 g/dL (12.0-16.0)
[2024-03-10] VITALS (109 sets, daily range): BP systolic 89–166; BP diastolic 22–109; PULSE 54–81; RESP 16–23; TEMP 36.50292–37.83636; O2SAT 96–100
[2024-03-10 01:25] LABS: HEMATOCRIT 22.8 % (36.0-48.0); HEMOGLOBIN 7.5 g/dL (12.0-16.0)
[2024-03-10 05:40] LABS: HEMATOCRIT 22.3 % (36.0-48.0); HEMOGLOBIN 7.3 g/dL (12.0-16.0); MEAN CORPUSCULAR HEMOGLOBIN 28.7 pg (28.0-32.0); MEAN CORPUSCULAR HGB CONC 32.9 g/dL (31.0-37.0); MEAN CORPUSCULAR VOLUME 87.2 fL (81.0-99.0); PLATELET 133 x1000/uL (130-400); RED BLOOD CELL COUNT 2.56 mill/uL (4.2-5.4); RED CELL DISTRIBUTION WIDTH 20.5 % (11.6-14.6); WHITE BLOOD COUNT 16.4 x1000/uL (4.5-11.0)
[2024-03-10 05:54] LABS: CARBON DIOXIDE 23 mEq/L (21-32); CHLORIDE 116 mEq/L (98-107); POTASSIUM 4.5 mEq/L (3.5-5.1); SODIUM 147 mEq/L (136-145)
[2024-03-10 05:55] LABS: CALCIUM 7.3 mg/dL (8.7-10.4)
[2024-03-10 06:00] LABS: GLUCOSE 142 mg/dL (70-105); UREA NITROGEN BLOOD 73 mg/dL (9-23)
[2024-03-10 06:02] LABS: ALANINE AMINOTRANSFERASE 76 IU/L (10-49); ASPARTATE AMINOTRANSFERASE 185 IU/L (<34); BILIRUBIN DIRECT 0.9 mg/dL (<=3.0); BILIRUBIN TOTAL 1.4 mg/dL (0.1-1.0); PHOSPHORUS 4.5 mg/dL (2.5-4.9)
[2024-03-10 06:15] LABS: HEPATITIS B SURFACE ANTIGEN NEGATIVE (Negative)
[2024-03-10 06:35] LABS: HEPATITIS A AB IGM NEGATIVE (Negative)
[2024-03-10 06:36] LABS: HEPATITIS B CORE AB IGM NEGATIVE (Negative); HEPATITIS C AB NON REACTIVE (Neg) (Negative)
[2024-03-10 07:18] LABS: CREATININE 1.7 mg/dL (0.6-1.0)
[2024-03-10] MEDS: DEXTROSE 5% WATER 1,000 ML IV SCH (08:19)
[2024-03-10] MEDS ORDERED: PREDNISONE 20MG TABLET PO SCH (09:00)
[2024-03-10] MEDS: BISACODYL 10MG SUPP PR SCH (12:26)
[2024-03-10] MEDS: OCTREOTIDE 1,000 MCG in SODIUM CHLORIDE 0.9% 98 ML IV SCH (14:25)
[2024-03-10] MEDS: NA PHOS,M-B/NA PHOS,DI-BA ENEMA 118ML PR SCH (14:25)
[2024-03-10] MEDS ORDERED: PANTOPRAZOLE SODIUM 40 MG/VIAL IV SCH (21:00)
[2024-03-11] VITALS (104 sets, daily range): BP systolic 86–167; BP diastolic 40–111; PULSE 48–74; RESP 15–23; TEMP 36.55848–36.9474; O2SAT 96–100
[2024-03-11 05:01] LABS: HEMATOCRIT. 26.6 % (36.0-48.0); HEMOGLOBIN. 8.6 g/dL (12.0-16.0); MEAN CORPUSCULAR HEMOGLOBIN 28.7 pg (28.0-32.0); MEAN CORPUSCULAR HGB CONC 32.6 g/dL (31.0-37.0); MEAN CORPUSCULAR VOLUME 88.2 fL (81.0-99.0); MEAN PLATELET VOLUME 9.9 fl (7.4-10.4); PLATELET 141 x1000/uL (130-400); RED BLOOD CELL COUNT 3.01 mill/uL (4.2-5.4); RED CELL DISTRIBUTION WIDTH 18.9 % (11.6-14.6)
[2024-03-11 05:27] LABS: CHLORIDE 113 mEq/L (98-107); POTASSIUM 4.1 mEq/L (3.5-5.1); SODIUM 143 mEq/L (136-145)
[2024-03-11 05:28] LABS: CARBON DIOXIDE 21 mEq/L (21-32)
[2024-03-11 05:29] LABS: CALCIUM 7.3 mg/dL (8.7-10.4)
[2024-03-11 05:33] LABS: CREATININE 1.6 mg/dL (0.6-1.0); GLUCOSE 232 mg/dL (70-105)
[2024-03-11 05:34] LABS: UREA NITROGEN BLOOD 64 mg/dL (9-23)
[2024-03-11 05:35] LABS: ALANINE AMINOTRANSFERASE 53 IU/L (10-49); ALBUMIN 2.2 g/dL (3.2-4.8); ASPARTATE AMINOTRANSFERASE 80 IU/L (<34)
[2024-03-11 05:36] LABS: BILIRUBIN DIRECT 0.9 mg/dL (<=3.0); BILIRUBIN TOTAL 1.4 mg/dL (0.1-1.0); PROTEIN TOTAL 5.1 g/dL (6.0-8.3)
[2024-03-11 06:35] LABS: DIFFERENTIAL COMMENT 1
[2024-03-11] MEDS: LIDOCAINE HCL 1% 10 MG/ML 10ML VIAL ONE (08:20)
[2024-03-11] MEDS ORDERED: DEXTROSE 50% WATER 50ML SYRINGE IV PRN (09:15)
[2024-03-11 10:13] LABS: BG BASE EXCESS -4.3 mmol/L (-2.0-3.0); BG CARBOXYHEMOGLOBIN 0.4 % (0.5-1.5); BG DEOXYHEMOGLOBIN 3.6 % (0.0-5.0); BG FRACTION INSPIRED OXYGEN 40; BG HCO3 ACT 19.9 mmol/L (21.0-28.0); BG OXYGEN SATURATION 96.4 % (94.0-98.0); BG PCO2 32.5 mmHg (32.0-45.0); BG PH 7.404 (7.350-7.450); BG PO2 87.1 mmHg (83.0-108.0); BG SAMPLE SITE LEFT BRACHIAL; BG TOTAL HEMOGLOBIN 8.7 g/dL (12.0-16.0); BG TOTAL RESPIRATORY RATE 18 b/min; BG VENT MODE VENT - AC
[2024-03-11] MEDS: BLOOD SUGAR DIAGNOSTIC STRIP TEST SCH (11:30)
[2024-03-11] MEDS: INSULIN LISPRO 100 UNITS/ML SUBCUT SCH (13:20)
[2024-03-11] MEDS: MIDODRINE HCL 5MG TABLET PO SCH (13:23)
[2024-03-11 16:40] LABS: ANISOCYTOSIS 1+; PLATELET ESTIMATE NORMAL
[2024-03-12] VITALS (103 sets, daily range): BP systolic 113–174; BP diastolic 42–140; PULSE 49–97; RESP 15–23; TEMP 36.61404–36.9474; O2SAT 93–100
[2024-03-12] MEDS: DEXMEDETOMIDINE 400 MCG/100 ML 100 ML IV PRN (00:17)
[2024-03-12 06:30] LABS: POTASSIUM 3.8 mEq/L (3.5-5.1)
[2024-03-12 06:31] LABS: CALCIUM 7.5 mg/dL (8.7-10.4)
[2024-03-12 06:36] LABS: CREATININE 1.2 mg/dL (0.6-1.0)
[2024-03-12 08:40] LABS: HEMATOCRIT. 27.7 % (36.0-48.0); HEMOGLOBIN. 8.9 g/dL (12.0-16.0); MEAN CORPUSCULAR HEMOGLOBIN 28.7 pg (28.0-32.0); MEAN CORPUSCULAR VOLUME 89.7 fL (81.0-99.0); MEAN PLATELET VOLUME 9.9 fl (7.4-10.4); PLATELET 135 x1000/uL (130-400); RED BLOOD CELL COUNT 3.09 mill/uL (4.2-5.4); RED CELL DISTRIBUTION WIDTH 19.9 % (11.6-14.6); WHITE BLOOD COUNT 18.6 x1000/uL (4.5-11.0)
[2024-03-12 08:41] LABS: DIFFERENTIAL COMMENT 1
[2024-03-12 08:57] LABS: BG BASE EXCESS -1.8 mmol/L (-2.0-3.0); BG CARBOXYHEMOGLOBIN 0.5 % (0.5-1.5); BG DEOXYHEMOGLOBIN 3.1 % (0.0-5.0); BG FRACTION INSPIRED OXYGEN 40; BG HCO3 ACT 21.9 mmol/L (21.0-28.0); BG METHEMOGLOBIN 0.3 % (0.5-1.5); BG OXYGEN SATURATION 96.9 % (94.0-98.0); BG OXYHEMOGLOBIN 96.1 % (94.0-98.0); BG PCO2 32.7 mmHg (32.0-45.0); BG PH 7.444 (7.350-7.450); BG PO2 84.4 mmHg (83.0-108.0); BG SAMPLE SITE LEFT RADIAL; BG TOTAL HEMOGLOBIN 8.6 g/dL (12.0-16.0); BG VENT MODE VENT - SIMV
[2024-03-12 09:15] LABS: ALANINE AMINOTRANSFERASE 39 IU/L (10-49); ALBUMIN 2.4 g/dL (3.2-4.8); ASPARTATE AMINOTRANSFERASE 47 IU/L (<34); BILIRUBIN DIRECT 0.8 mg/dL (<=3.0); BILIRUBIN TOTAL 1.4 mg/dL (0.1-1.0); PROTEIN TOTAL 5.6 g/dL (6.0-8.3)
[2024-03-12 11:12] LABS: ANISOCYTOSIS 2+; OVALOCYTES 1+; PLATELET ESTIMATE NORMAL
[2024-03-12] MEDS ORDERED: RACEPINEPHRINE 2.25% 0.5ML NEB VIAL HHN PRN (12:00)
[2024-03-13] VITALS (62 sets, daily range): BP systolic 87–169; BP diastolic 58–130; PULSE 67–75; RESP 13–20; TEMP 36.22512; O2SAT 93–100
[2024-03-13 05:54] LABS: HEMATOCRIT. 24.5 % (36.0-48.0); HEMOGLOBIN. 8.1 g/dL (12.0-16.0); MEAN CORPUSCULAR HEMOGLOBIN 29.6 pg (28.0-32.0); MEAN CORPUSCULAR HGB CONC 33.2 g/dL (31.0-37.0); MEAN CORPUSCULAR VOLUME 89.2 fL (81.0-99.0); MEAN PLATELET VOLUME 9.3 fl (7.4-10.4); PLATELET 167 x1000/uL (130-400); RED BLOOD CELL COUNT 2.75 mill/uL (4.2-5.4); WHITE BLOOD COUNT 14.1 x1000/uL (4.5-11.0)
[2024-03-13 06:01] LABS: POTASSIUM 3.6 mEq/L (3.5-5.1)
[2024-03-13 06:03] LABS: CALCIUM 7.5 mg/dL (8.7-10.4)
[2024-03-13 06:09] LABS: INR 1.1
[2024-03-13 06:38] LABS: DIFFERENTIAL COMMENT 1
[2024-03-13 09:27] LABS: BG BASE EXCESS -1.1 mmol/L (-2.0-3.0); BG CARBOXYHEMOGLOBIN 1.9 % (0.5-1.5); BG DEOXYHEMOGLOBIN 13.7 % (0.0-5.0); BG FRACTION INSPIRED OXYGEN 21; BG HCO3 ACT 22.9 mmol/L (21.0-28.0); BG METHEMOGLOBIN 0.1 % (0.5-1.5); BG OXYHEMOGLOBIN 84.3 % (94.0-98.0); BG PCO2 35.2 mmHg (32.0-45.0); BG PH 7.432 (7.350-7.450); BG PO2 47.8 mmHg (83.0-108.0); BG SAMPLE SITE RIGHT BRACHIAL; BG TOTAL HEMOGLOBIN 8.8 g/dL (12.0-16.0); BG VENT MODE ROOM AIR
[2024-03-13 11:25] LABS: BG CARBOXYHEMOGLOBIN 1.9 % (0.5-1.5); BG DEOXYHEMOGLOBIN 10.5 % (0.0-5.0); BG FRACTION INSPIRED OXYGEN 21; BG HCO3 ACT 23.8 mmol/L (21.0-28.0); BG METHEMOGLOBIN 0.3 % (0.5-1.5); BG OXYGEN SATURATION 89.3 % (94.0-98.0); BG OXYHEMOGLOBIN 87.3 % (94.0-98.0); BG PCO2 34.8 mmHg (32.0-45.0); BG PH 7.452 (7.350-7.450); BG PO2 51.1 mmHg (83.0-108.0); BG SAMPLE SITE RIGHT RADIAL; BG TOTAL HEMOGLOBIN 9.4 g/dL (12.0-16.0); BG VENT MODE ROOM AIR
[2024-03-13 18:31] LABS: ANISOCYTOSIS 1+; PLATELET ESTIMATE NORMAL
[2024-03-13] MEDS: KETOROLAC 15MG/ML VIAL IV PRN (18:58)
[2024-03-13] MEDS: IPRATROPIUM/ALBUTEROL 0.5-3(2.5)MG/3ML NEB HHN SCH (20:37)
[2024-03-14] VITALS (43 sets, daily range): BP systolic 118–177; BP diastolic 46–116; PULSE 70–79; RESP 12–19; TEMP 36.3918–36.61404; O2SAT 92–100
[2024-03-14] MEDS: ACETYLCYSTEINE 200MG/ML 20% VIAL 4ML INH SCH (00:30)
[2024-03-14 05:15] LABS: CARBON DIOXIDE 25 mEq/L (21-32); CHLORIDE 111 mEq/L (98-107)
[2024-03-14 05:16] LABS: POTASSIUM 3.5 mEq/L (3.5-5.1); SODIUM 142 mEq/L (136-145)
[2024-03-14 05:17] LABS: CALCIUM 7.7 mg/dL (8.7-10.4)
[2024-03-14 05:21] LABS: CREATININE 0.9 mg/dL (0.6-1.0); GLUCOSE 171 mg/dL (70-105)
[2024-03-14 05:22] LABS: UREA NITROGEN BLOOD 27 mg/dL (9-23)
[2024-03-14 05:25] LABS: HEMATOCRIT. 27.8 % (36.0-48.0); HEMOGLOBIN. 8.8 g/dL (12.0-16.0); MEAN CORPUSCULAR HEMOGLOBIN 29.3 pg (28.0-32.0); MEAN CORPUSCULAR HGB CONC 31.5 g/dL (31.0-37.0); MEAN CORPUSCULAR VOLUME 93.1 fL (81.0-99.0); PLATELET 214 x1000/uL (130-400); RED BLOOD CELL COUNT 2.99 mill/uL (4.2-5.4); RED CELL DISTRIBUTION WIDTH 19.7 % (11.6-14.6); WHITE BLOOD COUNT 12.5 x1000/uL (4.5-11.0)
[2024-03-14 07:11] LABS: DIFFERENTIAL COMMENT 1
[2024-03-14] MEDS ORDERED: PHENOL/SODIUM PHENOLATE 1.4% SRPAY 177ML MM PRN (10:15)
[2024-03-14 20:35] LABS: PLATELET ESTIMATE NORMAL
[2024-03-15] VITALS (9 sets, daily range): BP systolic 138–169; BP diastolic 37–86; PULSE 71–79; RESP 16–19; TEMP 36.33624–37.00296; O2SAT 93–98
[2024-03-15 07:03] LABS: AMMONIA < 17 uMol/L (<32)
[2024-03-15 07:10] LABS: ALANINE AMINOTRANSFERASE 20 IU/L (10-49); ALBUMIN 2.4 g/dL (3.2-4.8); ASPARTATE AMINOTRANSFERASE 28 IU/L (<34); BILIRUBIN TOTAL 1.6 mg/dL (0.1-1.0); PROTEIN TOTAL 5.6 g/dL (6.0-8.3)
[2024-03-15 08:49] LABS: PREALBUMIN < 5.0 mg/dl (10.0-40.0)
[2024-03-16] VITALS (8 sets, daily range): BP systolic 129–162; BP diastolic 41–79; PULSE 63–86; RESP 17–20; TEMP 36.33624–37.44744; O2SAT 95–100
[2024-03-16 06:28] LABS: INR 1.1; PROTHROMBIN TIME 11.7 sec (9.6-11.0)
[2024-03-16 06:36] LABS: ALANINE AMINOTRANSFERASE 19 IU/L (10-49); ALBUMIN 2.3 g/dL (3.2-4.8); BILIRUBIN DIRECT 0.9 mg/dL (<=3.0)
[2024-03-16 06:37] LABS: ASPARTATE AMINOTRANSFERASE 32 IU/L (<34); BILIRUBIN TOTAL 1.6 mg/dL (0.1-1.0); PROTEIN TOTAL 5.6 g/dL (6.0-8.3)
[2024-03-16 07:01] LABS: HEMATOCRIT. 23.8 % (36.0-48.0); MEAN CORPUSCULAR HEMOGLOBIN 30.9 pg (28.0-32.0); MEAN CORPUSCULAR HGB CONC 33.5 g/dL (31.0-37.0); MEAN CORPUSCULAR VOLUME 92.1 fL (81.0-99.0); MEAN PLATELET VOLUME 8.5 fl (7.4-10.4); PLATELET 255 x1000/uL (130-400); RED BLOOD CELL COUNT 2.58 mill/uL (4.2-5.4); RED CELL DISTRIBUTION WIDTH 20.4 % (11.6-14.6); WHITE BLOOD COUNT 8.9 x1000/uL (4.5-11.0)
[2024-03-16 07:14] LABS: DIFFERENTIAL COMMENT 1
[2024-03-16 15:55] LABS: ANISOCYTOSIS 2+; PLATELET ESTIMATE NORMAL
[2024-03-17] VITALS (8 sets, daily range): BP systolic 152–179; BP diastolic 43–69; PULSE 65–82; RESP 18–20; TEMP 36.22512–36.55848; O2SAT 92–98
[2024-03-17 06:42] LABS: ALANINE AMINOTRANSFERASE 15 IU/L (10-49); ASPARTATE AMINOTRANSFERASE 28 IU/L (<34)
[2024-03-17 06:43] LABS: ALBUMIN 2.3 g/dL (3.2-4.8); BILIRUBIN DIRECT 0.9 mg/dL (<=3.0); BILIRUBIN TOTAL 1.6 mg/dL (0.1-1.0); PROTEIN TOTAL 5.7 g/dL (6.0-8.3)
[2024-03-17 07:00] LABS: HEMATOCRIT. 24.5 % (36.0-48.0); HEMOGLOBIN. 8.1 g/dL (12.0-16.0); MEAN CORPUSCULAR HEMOGLOBIN 30.7 pg (28.0-32.0); MEAN CORPUSCULAR HGB CONC 33.1 g/dL (31.0-37.0); MEAN CORPUSCULAR VOLUME 92.9 fL (81.0-99.0); MEAN PLATELET VOLUME 8.3 fl (7.4-10.4); PLATELET 259 x1000/uL (130-400); RED BLOOD CELL COUNT 2.63 mill/uL (4.2-5.4); WHITE BLOOD COUNT 8.5 x1000/uL (4.5-11.0)
[2024-03-17 07:27] LABS: DIFFERENTIAL COMMENT 1
[2024-03-17 09:07] LABS: CHLORIDE 115 mEq/L (98-107); POTASSIUM 3.5 mEq/L (3.5-5.1); SODIUM 145 mEq/L (136-145)
[2024-03-17 09:08] LABS: CALCIUM 7.5 mg/dL (8.7-10.4); CARBON DIOXIDE 25 mEq/L (21-32)
[2024-03-17 09:13] LABS: CREATININE 0.9 mg/dL (0.6-1.0); GLUCOSE 133 mg/dL (70-105); UREA NITROGEN BLOOD 21 mg/dL (9-23)
[2024-03-17] MEDS ORDERED: MAGNESIUM HYDROXIDE 400MG/5ML 30ML UDC PO PRN (10:45)
[2024-03-17 14:14] LABS: ANISOCYTOSIS 2+; PLATELET ESTIMATE NORMAL
[2024-03-17] MEDS: POLYETHYLENE GLYCOL 3350 (17GM) 1 DOSE PACK PO SCH (15:11)
[2024-03-17] MEDS: CLONIDINE 0.1MG TABLET PO PRN (21:03)
[2024-03-18] VITALS (9 sets, daily range): BP systolic 121–158; BP diastolic 45–61; PULSE 56–76; RESP 16–20; TEMP 36.16956–37.00296; O2SAT 93–98
[2024-03-18 03:19] LABS: HEMATOCRIT. 25.6 % (36.0-48.0); HEMOGLOBIN. 8.5 g/dL (12.0-16.0); MEAN CORPUSCULAR HEMOGLOBIN 31.2 pg (28.0-32.0); MEAN CORPUSCULAR HGB CONC 33.3 g/dL (31.0-37.0); MEAN CORPUSCULAR VOLUME 93.8 fL (81.0-99.0); MEAN PLATELET VOLUME 7.9 fl (7.4-10.4); PLATELET 263 x1000/uL (130-400); RED BLOOD CELL COUNT 2.73 mill/uL (4.2-5.4); RED CELL DISTRIBUTION WIDTH 23.6 % (11.6-14.6); WHITE BLOOD COUNT 8.3 x1000/uL (4.5-11.0)
[2024-03-18 03:35] LABS: INR 1.1; PROTHROMBIN TIME 11.9 sec (9.6-11.0)
[2024-03-18 03:40] LABS: DIFFERENTIAL COMMENT 1
[2024-03-18 03:46] LABS: CHLORIDE 115 mEq/L (98-107); POTASSIUM 3.8 mEq/L (3.5-5.1); SODIUM 145 mEq/L (136-145)
[2024-03-18 03:47] LABS: CALCIUM 7.7 mg/dL (8.7-10.4); CARBON DIOXIDE 26 mEq/L (21-32)
[2024-03-18 03:52] LABS: CREATININE 0.8 mg/dL (0.6-1.0); GLUCOSE 132 mg/dL (70-105); UREA NITROGEN BLOOD 20 mg/dL (9-23)
[2024-03-18 03:54] LABS: ALANINE AMINOTRANSFERASE 12 IU/L (10-49); ALBUMIN 2.2 g/dL (3.2-4.8); ASPARTATE AMINOTRANSFERASE 28 IU/L (<34); BILIRUBIN DIRECT 0.9 mg/dL (<=3.0); BILIRUBIN TOTAL 1.7 mg/dL (0.1-1.0); PROTEIN TOTAL 5.5 g/dL (6.0-8.3)
[2024-03-18] MEDS ORDERED: ETOMIDATE 2MG/ML 10ML VIAL IV ONE (10:46)
[2024-03-18] MEDS ORDERED: ONDANSETRON HCL 4MG/2ML INJ IV PRN (11:15)
[2024-03-18] MEDS ORDERED: GLYCOPYRROLATE 0.2 MG/ML 2ML VIAL IV PRN (11:15)
[2024-03-18] MEDS ORDERED: DEXAMETHASONE 4MG/ML 1ML VIAL IV PRN (11:15)
[2024-03-18] MEDS: BISACODYL 10MG SUPP PR NR (14:27)
[2024-03-18 17:22] LABS: PLATELET ESTIMATE NORMAL
[2024-03-19] VITALS: BP 145/63; PULSE 63; RESP 17; TEMP 37.11408; O2SAT 97
[2024-03-19 04:00] VITALS: BP 147/62; PULSE 64; RESP 17; TEMP 36.9474; O2SAT 97
[2024-03-19 08:00] VITALS: BP 154/58; PULSE 58; RESP 20; TEMP 36.28068; O2SAT 99
[2024-03-19] MEDS: ENOXAPARIN 80MG/0.8ML SYR SUBCUT SCH (09:00)
[2024-03-19 12:00] VITALS: BP 140/56; PULSE 60; RESP 20; TEMP 36.33624; O2SAT 100
[2024-03-19] MEDS: NA PHOS,M-B/NA PHOS,DI-BA ENEMA 118ML PR NR ×2 (13:30→13:35)
[2024-03-19] MEDS: LACTULOSE 20G/30ML UDC PO NR ×2 (14:17→21:36)
[2024-03-19 16:00] VITALS: BP 138/74; PULSE 89; RESP 18; TEMP 36.55848; O2SAT 98
[2024-03-19] MEDS: SENNOSIDES/DOCUSATE SOD 8.6/50MG TABLET PO SCH (18:58)
[2024-03-19] MEDS: ONDANSETRON HCL 4MG/2ML INJ IV PRN (19:53)
[2024-03-19 20:00] VITALS: BP 167/66; PULSE 67; RESP 17; TEMP 36.6696; O2SAT 100
[2024-03-19 21:20] LABS: HEMATOCRIT 26.4 % (36.0-48.0); HEMOGLOBIN 8.6 g/dL (12.0-16.0); MEAN CORPUSCULAR HEMOGLOBIN 30.7 pg (28.0-32.0); MEAN CORPUSCULAR HGB CONC 32.7 g/dL (31.0-37.0); MEAN CORPUSCULAR VOLUME 93.7 fL (81.0-99.0); PLATELET 288 x1000/uL (130-400); RED BLOOD CELL COUNT 2.82 mill/uL (4.2-5.4); RED CELL DISTRIBUTION WIDTH 24.3 % (11.6-14.6); WHITE BLOOD COUNT 7.5 x1000/uL (4.5-11.0)
[2024-03-19 21:27] LABS: CHLORIDE 113 mEq/L (98-107); POTASSIUM 3.9 mEq/L (3.5-5.1); SODIUM 144 mEq/L (136-145)
[2024-03-19 21:28] LABS: CALCIUM 7.6 mg/dL (8.7-10.4); CARBON DIOXIDE 28 mEq/L (21-32)
[2024-03-19 21:33] LABS: CREATININE 0.7 mg/dL (0.6-1.0); GLUCOSE 99 mg/dL (70-105); UREA NITROGEN BLOOD 20 mg/dL (9-23)
[2024-03-19 21:35] LABS: ALANINE AMINOTRANSFERASE 12 IU/L (10-49); ALBUMIN 2.4 g/dL (3.2-4.8); ASPARTATE AMINOTRANSFERASE 30 IU/L (<34); BILIRUBIN TOTAL 1.9 mg/dL (0.1-1.0)
[2024-03-20] VITALS (7 sets, daily range): BP systolic 93–158; BP diastolic 51–65; PULSE 57–65; RESP 18–20; TEMP 36.3918–36.89184; O2SAT 91–100
[2024-03-20] MEDS: ACETAMINOPHEN 325MG TABLET PO PRN (09:10)
[2024-03-20 17:30] LABS: CHLORIDE 110 mEq/L (98-107); POTASSIUM 4.9 mEq/L (3.5-5.1); SODIUM 140 mEq/L (136-145)
[2024-03-20 17:31] LABS: CALCIUM 7.8 mg/dL (8.7-10.4); CARBON DIOXIDE 23 mEq/L (21-32)
[2024-03-20 17:36] LABS: CREATININE 0.7 mg/dL (0.6-1.0); GLUCOSE 96 mg/dL (70-105); UREA NITROGEN BLOOD 15 mg/dL (9-23)
[2024-03-20 17:38] LABS: ALANINE AMINOTRANSFERASE 11 IU/L (10-49); ALBUMIN 2.2 g/dL (3.2-4.8); ASPARTATE AMINOTRANSFERASE 35 IU/L (<34); BILIRUBIN DIRECT 0.8 mg/dL (<=3.0); BILIRUBIN TOTAL 1.7 mg/dL (0.1-1.0)
[2024-03-20 17:47] LABS: BASOPHILS % 0.6 % (0.0-2.0); EOSINOPHILS % 1.7 % (0.0-5.0); HEMATOCRIT. 28.9 % (36.0-48.0); HEMOGLOBIN. 8.6 g/dL (12.0-16.0); LYMPHOCYTES % 11.4 % (20.0-50.0); MEAN CORPUSCULAR HEMOGLOBIN 30.4 pg (28.0-32.0); MEAN CORPUSCULAR HGB CONC 29.7 g/dL (31.0-37.0); MEAN CORPUSCULAR VOLUME 102.6 fL (81.0-99.0); MEAN PLATELET VOLUME 8.2 fl (7.4-10.4); MONOCYTES % 10.2 % (2.0-8.0); NEUTROPHILS % 76.1 % (40.0-76.0); PLATELET 121 x1000/uL (130-400); RED BLOOD CELL COUNT 2.81 mill/uL (4.2-5.4); RED CELL DISTRIBUTION WIDTH 26.1 % (11.6-14.6); WHITE BLOOD COUNT 6.6 x1000/uL (4.5-11.0)
[2024-03-20 17:51] LABS: DIFFERENTIAL COMMENT 1
[2024-03-20 17:54] LABS: ADD RBC MORPHOLOGY YES
[2024-03-20] MEDS: GABAPENTIN 100MG CAPSULE PO SCH ×2 (18:47→20:32)
[2024-03-20 20:36] LABS: PLATELET ESTIMATE DECREASED
[2024-03-20 20:37] LABS: ANISOCYTOSIS 2+; OVALOCYTES 1+
[2024-03-21 04:00] VITALS: BP 134/52; PULSE 55; RESP 20; TEMP 36.33624; O2SAT 96
[2024-03-21 08:00] VITALS: BP 107/68; PULSE 53; RESP 20; TEMP 36.50292; O2SAT 99
[2024-03-21] MEDS: DULOXETINE HCL 30MG DR CAPSULE PO SCH (09:13)
[2024-03-21 12:00] VITALS: BP 110/76; PULSE 64; RESP 20; TEMP 36.3918; O2SAT 100
[2024-03-21] MEDS: MEGESTROL ACETATE 400 MG/10 ML UDC PO SCH (12:29)
[2024-03-21] MEDS: NA PHOS,M-B/NA PHOS,DI-BA ENEMA 118ML PR NR (13:00)
[2024-03-21 16:00] VITALS: BP 115/74; PULSE 69; RESP 18; TEMP 36.50292; O2SAT 99
[2024-03-21 18:58] LABS: BASOPHILS % 0.7 % (0.0-2.0); EOSINOPHILS % 1.5 % (0.0-5.0); HEMATOCRIT. 31.2 % (36.0-48.0); HEMOGLOBIN. 9.6 g/dL (12.0-16.0); LYMPHOCYTES % 9.3 % (20.0-50.0); MEAN CORPUSCULAR HEMOGLOBIN 30.7 pg (28.0-32.0); MEAN CORPUSCULAR HGB CONC 30.8 g/dL (31.0-37.0); MEAN CORPUSCULAR VOLUME 99.7 fL (81.0-99.0); MEAN PLATELET VOLUME 8.1 fl (7.4-10.4); MONOCYTES % 10.1 % (2.0-8.0); NEUTROPHILS % 78.4 % (40.0-76.0); PLATELET 288 x1000/uL (130-400); RED BLOOD CELL COUNT 3.13 mill/uL (4.2-5.4); RED CELL DISTRIBUTION WIDTH 25.8 % (11.6-14.6); WHITE BLOOD COUNT 7.3 x1000/uL (4.5-11.0)
[2024-03-21 19:08] LABS: DIFFERENTIAL COMMENT 1
[2024-03-21 19:09] LABS: ALANINE AMINOTRANSFERASE 12 IU/L (10-49); ALBUMIN 2.5 g/dL (3.2-4.8); ASPARTATE AMINOTRANSFERASE 35 IU/L (<34); BILIRUBIN TOTAL 1.9 mg/dL (0.1-1.0); PROTEIN TOTAL 6.6 g/dL (6.0-8.3)
[2024-03-21 20:00] VITALS: BP 97/61; PULSE 56; RESP 18; TEMP 36.50292; O2SAT 100
[2024-03-21] MEDS: BISACODYL 10MG SUPP PR NR (21:39)
[2024-03-22] VITALS: BP 138/60; PULSE 53; RESP 18; TEMP 36.55848; O2SAT 100
[2024-03-22 04:00] VITALS: BP 125/40; PULSE 57; RESP 18; TEMP 36.3918; O2SAT 100
[2024-03-22 08:17] VITALS: BP 132/49; PULSE 55; RESP 18; TEMP 36.50292
[2024-03-22 11:56] VITALS: BP_SYST 152; BP_SYST 167; BP_DIAS 27; BP_DIAS 50; PULSE 56; RESP 19; TEMP 36.55848; O2SAT 96
[2024-03-22 16:23] VITALS: BP_SYST 152; BP_SYST 182; BP_DIAS 53; PULSE 61; RESP 20; TEMP 36.78072; O2SAT 94
[2024-03-22] MEDS: NA PHOS,M-B/NA PHOS,DI-BA ENEMA 118ML PR ONE (17:45)
[2024-03-22] MEDS: NA PHOS,M-B/NA PHOS,DI-BA ENEMA 118ML PR NR (18:06)
[2024-03-22 20:00] VITALS: BP 119/55; PULSE 60; RESP 18; TEMP 36.61404; O2SAT 96
[2024-03-23] VITALS: BP 121/59; PULSE 62; RESP 20; TEMP 36.83628; O2SAT 97
[2024-03-23 04:00] VITALS: BP 103/47; PULSE 62; RESP 20; TEMP 36.78072; O2SAT 98
[2024-03-23 08:12] VITALS: BP 114/57; PULSE 56; RESP 19; TEMP 36.61404; O2SAT 92
[2024-03-23] MEDS: NA PHOS,M-B/NA PHOS,DI-BA ENEMA 118ML PR PRN (08:25)
[2024-03-23 12:16] VITALS: BP 105/58; PULSE 52; RESP 18; TEMP 36.55848; O2SAT 92
[2024-03-23 16:11] VITALS: BP 94/52; PULSE 58; RESP 18; TEMP 36.61404; O2SAT 94
[2024-03-23] MEDS: BISACODYL 5MG TABLET PO NR (17:28)
[2024-03-23] MEDS: METOCLOPRAMIDE HCL 10MG/2ML VIAL IV NR (17:28)
[2024-03-23] MEDS: SORBITOL 70% SOLN 30ML PO NR (17:29)
[2024-03-23 20:00] VITALS: BP 131/50; PULSE 64; RESP 18; TEMP 36.72516; O2SAT 96
[2024-03-24] VITALS: BP 95/47; PULSE 59; RESP 20; TEMP 37.00296; O2SAT 97
[2024-03-24 04:00] VITALS: BP 126/54; PULSE 61; RESP 20; TEMP 37.2252; O2SAT 98
[2024-03-24 07:55] VITALS: BP 129/43; PULSE 66; RESP 20; TEMP 36.61404; O2SAT 93
[2024-03-24 11:49] VITALS: BP 107/56; PULSE 67; RESP 19; TEMP 36.83628; O2SAT 92
[2024-03-24 15:38] VITALS: BP 120/39; PULSE 68; RESP 20; TEMP 36.89184; O2SAT 97
[2024-03-24 20:00] VITALS: BP 107/60; PULSE 61; RESP 20; TEMP 36.78072; O2SAT 98
[2024-03-24] MEDS: SENNOSIDES/DOCUSATE SOD 8.6/50MG TABLET PO SCH (21:30)
[2024-03-24 21:42] LABS: CARBON DIOXIDE 23 mEq/L (21-32); CHLORIDE 113 mEq/L (98-107); POTASSIUM 3.9 mEq/L (3.5-5.1); SODIUM 141 mEq/L (136-145)
[2024-03-24 21:43] LABS: CALCIUM 6.3 mg/dL (8.7-10.4)
[2024-03-24 21:47] LABS: CREATININE 0.8 mg/dL (0.6-1.0); GLUCOSE 86 mg/dL (70-105)
[2024-03-24 21:48] LABS: UREA NITROGEN BLOOD 24 mg/dL (9-23)
[2024-03-24 21:51] LABS: HEMATOCRIT. 26.7 % (36.0-48.0); HEMOGLOBIN. 8.5 g/dL (12.0-16.0); MEAN CORPUSCULAR HEMOGLOBIN 30.9 pg (28.0-32.0); MEAN CORPUSCULAR HGB CONC 31.9 g/dL (31.0-37.0); MEAN PLATELET VOLUME 8.1 fl (7.4-10.4); PLATELET 233 x1000/uL (130-400); RED BLOOD CELL COUNT 2.75 mill/uL (4.2-5.4); RED CELL DISTRIBUTION WIDTH 26.8 % (11.6-14.6); WHITE BLOOD COUNT 10.8 x1000/uL (4.5-11.0)
[2024-03-24 21:52] LABS: DIFFERENTIAL COMMENT 1
[2024-03-24 23:23] LABS: PLATELET ESTIMATE NORMAL
[2024-03-24 23:24] LABS: ANISOCYTOSIS 2+; HYPOCHROMASIA 1+; OVALOCYTES 1+
[2024-03-25] VITALS: BP 110/69; PULSE 63; RESP 20; TEMP 37.05852; O2SAT 98
[2024-03-25 04:00] VITALS: BP 130/47; PULSE 57; RESP 18; TEMP 37.11408; O2SAT 98
[2024-03-25 08:00] VITALS: BP 95/76; PULSE 62; RESP 18; TEMP 36.33624; O2SAT 95
[2024-03-25 12:00] VITALS: BP 126/57; PULSE 59; RESP 18; TEMP 37.05852; O2SAT 99
[2024-03-25 16:00] VITALS: BP 100/49; PULSE 60; RESP 18; TEMP 36.33624; O2SAT 95
[2024-03-25] MEDS: SORBITOL 70% SOLN 30ML PO NR (18:00)
[2024-03-25 19:02] LABS: POTASSIUM 4.7 mEq/L (3.5-5.1)
[2024-03-25 19:03] LABS: HEMATOCRIT. 29.3 % (36.0-48.0); HEMOGLOBIN. 9.4 g/dL (12.0-16.0); MEAN CORPUSCULAR HEMOGLOBIN 31.7 pg (28.0-32.0); MEAN CORPUSCULAR HGB CONC 32.2 g/dL (31.0-37.0); MEAN CORPUSCULAR VOLUME 98.2 fL (81.0-99.0); MEAN PLATELET VOLUME 8.4 fl (7.4-10.4); PLATELET 251 x1000/uL (130-400); RED BLOOD CELL COUNT 2.98 mill/uL (4.2-5.4); RED CELL DISTRIBUTION WIDTH 27.7 % (11.6-14.6); WHITE BLOOD COUNT 7.9 x1000/uL (4.5-11.0)
[2024-03-25 19:04] LABS: DIFFERENTIAL COMMENT 1
[2024-03-25 20:00] VITALS: BP 138/58; PULSE 61; RESP 18; TEMP 36.72516; O2SAT 96
[2024-03-25 21:54] LABS: ANISOCYTOSIS 2+; GIANT PLATELETS 1+; PLATELET ESTIMATE NORMAL
[2024-03-25 21:55] LABS: HYPOCHROMASIA 1+; OVALOCYTES 1+
[2024-03-26] VITALS: BP 147/59; PULSE 62; RESP 18; TEMP 36.50292; O2SAT 97
[2024-03-26 04:00] VITALS: BP 120/58; PULSE 67; RESP 20; TEMP 37.11408; O2SAT 97
[2024-03-26 06:14] LABS: BASOPHILS % 0.3 % (0.0-2.0); EOSINOPHILS % 1.1 % (0.0-5.0); HEMOGLOBIN. 9.2 g/dL (12.0-16.0); LYMPHOCYTES % 8.2 % (20.0-50.0); MEAN CORPUSCULAR HEMOGLOBIN 31.5 pg (28.0-32.0); MEAN CORPUSCULAR HGB CONC 31.8 g/dL (31.0-37.0); MEAN PLATELET VOLUME 8.2 fl (7.4-10.4); MONOCYTES % 10.1 % (2.0-8.0); NEUTROPHILS % 80.3 % (40.0-76.0); PLATELET 254 x1000/uL (130-400); RED BLOOD CELL COUNT 2.93 mill/uL (4.2-5.4); RED CELL DISTRIBUTION WIDTH 27.6 % (11.6-14.6); WHITE BLOOD COUNT 9.3 x1000/uL (4.5-11.0)
[2024-03-26 06:24] LABS: POTASSIUM 4.9 mEq/L (3.5-5.1)
[2024-03-26 06:26] LABS: CALCIUM 8.2 mg/dL (8.7-10.4)
[2024-03-26 07:01] LABS: DIFFERENTIAL COMMENT 1
[2024-03-26 08:00] VITALS: BP 145/94; PULSE 60; RESP 20; TEMP 36.72516; O2SAT 95
[2024-03-26 12:00] VITALS: BP 152/57; PULSE 55; RESP 20; TEMP 36.72516; O2SAT 97
[2024-03-26 16:00] VITALS: BP 139/79; PULSE 80; RESP 18; TEMP 36.6696; O2SAT 98
[2024-03-26 20:00] VITALS: BP 112/61; PULSE 61; RESP 17; TEMP 36.50292; O2SAT 97
== END 2024-03-26 22:40 | DRG 870 ==
LOC: ER 20:17 → MICUNO 21:40 → EDBEDREQ 21:49 → EDBEDREQTM 21:49 → EDBEDREQSVC 21:49 → MICUSO 03-02 12:44 → 7WST 03-14 16:10
PROVIDERS: ADMIT Internal Medicine; ATTEND Internal Medicine
PROC: 5A1955Z Respiratory Ventilation, Greater than 96 Consecutive Hours (ICD-10-PCS; principal; 2024-02-28)
PROC: 0BH17EZ Insertion of Endotracheal Airway into Trachea, Via Natural or Artificial Opening (ICD-10-PCS; 2024-02-28)
PROC: 0W9G3ZZ Drainage of Peritoneal Cavity, Percutaneous Approach (ICD-10-PCS; 2024-03-03)
PROC: 0W993ZZ Drainage of Right Pleural Cavity, Percutaneous Approach (ICD-10-PCS; 2024-03-04)
PROC: 02HV33Z Insertion of Infusion Device into Superior Vena Cava, Percutaneous Approach (ICD-10-PCS; 2024-03-07)
PROC: B548ZZA Ultrasonography of Superior Vena Cava, Guidance (ICD-10-PCS; 2024-03-07)
PROC: 5A1945Z Respiratory Ventilation, 24-96 Consecutive Hours (ICD-10-PCS; 2024-03-09)
PROC: 0BH17EZ Insertion of Endotracheal Airway into Trachea, Via Natural or Artificial Opening (ICD-10-PCS; 2024-03-09)
PROC: 30233N1 Transfusion of Nonautologous Red Blood Cells into Peripheral Vein, Percutaneous Approach (ICD-10-PCS; 2024-03-09)
PROC: 5A0935A Assistance with Respiratory Ventilation, Less than 24 Consecutive Hours, High Flow/Velocity Cannula (ICD-10-PCS; 2024-03-09)
PROC: 0W9G3ZZ Drainage of Peritoneal Cavity, Percutaneous Approach (ICD-10-PCS; 2024-03-12)
PROC: 0W993ZZ Drainage of Right Pleural Cavity, Percutaneous Approach (ICD-10-PCS; 2024-03-17)
PROC: 0DB78ZX Excision of Stomach, Pylorus, Via Natural or Artificial Opening Endoscopic, Diagnostic (ICD-10-PCS; 2024-03-18)
DX: A41.9 Sepsis, unspecified organism (principal); L89.153 Pressure ulcer of sacral region, stage 3; G93.41 Metabolic encephalopathy; J18.9 Pneumonia, unspecified organism; J96.21 Acute and chronic respiratory failure with hypoxia; J96.22 Acute and chronic respiratory failure with hypercapnia; K29.71 Gastritis, unspecified, with bleeding; R57.8 Other shock; E87.20 Acidosis, unspecified; N17.9 Acute kidney failure, unspecified; D68.9 Coagulation defect, unspecified; R18.8 Other ascites; E87.0 Hyperosmolality and hypernatremia; I82.611 Acute embolism and thrombosis of superficial veins of right upper extremity; E87.1 Hypo-osmolality and hyponatremia; I50.22 Chronic systolic (congestive) heart failure; B37.49 Other urogenital candidiasis; I82.621 Acute embolism and thrombosis of deep veins of right upper extremity; I82.622 Acute embolism and thrombosis of deep veins of left upper extremity; D62 Acute posthemorrhagic anemia; J91.8 Pleural effusion in other conditions classified elsewhere; T17.890A Other foreign object in other parts of respiratory tract causing asphyxiation, initial encounter; I13.0 Hypertensive heart and chronic kidney disease with heart failure and stage 1 through stage 4 chronic kidney disease, or unspecified chronic kidney disease; Z20.822 Contact with and (suspected) exposure to COVID-19; E87.5 Hyperkalemia; N18.9 Chronic kidney disease, unspecified; D50.9 Iron deficiency anemia, unspecified; I71.9 Aortic aneurysm of unspecified site, without rupture; K74.60 Unspecified cirrhosis of liver; D63.8 Anemia in other chronic diseases classified elsewhere; S90.32XA Contusion of left foot, initial encounter; S90.31XA Contusion of right foot, initial encounter; L89.520 Pressure ulcer of left ankle, unstageable; L89.510 Pressure ulcer of right ankle, unstageable; R58 Hemorrhage, not elsewhere classified; I07.1 Rheumatic tricuspid insufficiency; I25.10 Atherosclerotic heart disease of native coronary artery without angina pectoris; I45.10 Unspecified right bundle-branch block; I48.0 Paroxysmal atrial fibrillation; K44.9 Diaphragmatic hernia without obstruction or gangrene; K56.41 Fecal impaction; L98.8 Other specified disorders of the skin and subcutaneous tissue; R32 Unspecified urinary incontinence; E78.5 Hyperlipidemia, unspecified; R73.9 Hyperglycemia, unspecified; Z86.73 Personal history of transient ischemic attack (TIA), and cerebral infarction without residual deficits; R00.1 Bradycardia, unspecified; W44.F9XA Other object of natural or organic material, entering into or through a natural orifice, initial encounter; X58.XXXA Exposure to other specified factors, initial encounter; Y93.89 Activity, other specified; Y92.89 Other specified places as the place of occurrence of the external cause; Y99.8 Other external cause status; Z74.01 Bed confinement status; Z79.4 Long term (current) use of insulin; Z79.84 Long term (current) use of oral hypoglycemic drugs; Z79.899 Other long term (current) drug therapy; Z86.718 Personal history of other venous thrombosis and embolism; Z86.79 Personal history of other diseases of the circulatory system
CPT/HCPCS: 31500; 32555; 36415; 36573; 36600; 49083; 71045; 71250; 74018; 76604; 76700; 80048; 80053; 80061; 80076; 80202; 80305; 81003; 82040; 82140; 82248; 82270; 82375; 82570; 82728; 82805; 82962; 83036; 83540; 83550; 83605; 83615; 83735; 83880; 84100; 84132; 84134; 84145; 84156; 84439; 84443; 84484; 85014; 85018; 85025; 85027; 85044; 86705; 86709; 86850; 86900; 86920; 87070; 87106; 87340; 87426; 88108; 88305; 88312; 88313; 92610; 93005; 93306; 93922; 93970; 93971; 94002; 94003; 94640; 97162; 97166; 97530; 97535; 99291; A6261; C1725; J0610; J0696; J1265; J1450; J1644; J1650; J1815; J1885; J1940; J2250; J2354; J2405; J2470; J2543; J2765; J2919; J2920; J3370; J3490; J7030; J7050; J7070; J7608; P9016; Q9957

== ENCOUNTER 2024-03-26 22:40 | Inpatient (IN) | payer MEDICARE, MEDICAID ==
[~2024-03-26] VITALS: Ht 167.6 cm; Wt 76.7 kg
[2024-03-26 23:00] VITALS: BP 145/55; PULSE 63; RESP 18; TEMP 36.14
[2024-03-26] MEDS ORDERED: SENNOSIDES/DOCUSATE SOD 8.6/50MG TABLET PO PRN (23:30)
[2024-03-26] MEDS ORDERED: ACETAMINOPHEN 325MG TABLET PO PRN (23:45)
[2024-03-26] MEDS ORDERED: MAGNESIUM HYDROXIDE 400MG/5ML 30ML UDC PO PRN (23:45)
[2024-03-26] MEDS ORDERED: ONDANSETRON HCL 4MG/2ML INJ IV PRN (23:45)
[2024-03-26] MEDS ORDERED: ZINC OXIDE 20% OINT 30GM TOP PRN (23:45)
[2024-03-27] VITALS (8 sets, daily range): BP systolic 142–165; BP diastolic 57–72; PULSE 57–88; RESP 16–22; TEMP 36.16956–36.72516; O2SAT 95–97
[2024-03-27] MEDS: DULOXETINE HCL 30MG DR CAPSULE PO SCH (08:52)
[2024-03-27] MEDS: ENOXAPARIN 80MG/0.8ML SYR SUBCUT SCH (08:52)
[2024-03-27] MEDS: GABAPENTIN 100MG CAPSULE PO SCH ×2 (08:52→21:00)
[2024-03-27] MEDS: MEGESTROL ACETATE 400 MG/10 ML UDC PO SCH (08:53)
[2024-03-27] MEDS ORDERED: PHENOL/SODIUM PHENOLATE 1.4% SRPAY 177ML MM PRN (09:00)
[2024-03-27 11:13] LABS: BASOPHILS % 0.5 % (0.0-2.0); EOSINOPHILS % 1.7 % (0.0-5.0); HEMATOCRIT. 29.5 % (36.0-48.0); HEMOGLOBIN. 9.2 g/dL (12.0-16.0); MEAN CORPUSCULAR HEMOGLOBIN 31.2 pg (28.0-32.0); MEAN CORPUSCULAR HGB CONC 31.2 g/dL (31.0-37.0); MEAN CORPUSCULAR VOLUME 99.8 fL (81.0-99.0); MEAN PLATELET VOLUME 8.3 fl (7.4-10.4); MONOCYTES % 11.2 % (2.0-8.0); NEUTROPHILS % 76.6 % (40.0-76.0); PLATELET 238 x1000/uL (130-400); RED BLOOD CELL COUNT 2.96 mill/uL (4.2-5.4); RED CELL DISTRIBUTION WIDTH 27.1 % (11.6-14.6); WHITE BLOOD COUNT 7.5 x1000/uL (4.5-11.0)
[2024-03-27 11:15] LABS: ADD RBC MORPHOLOGY NO; DIFFERENTIAL COMMENT 1
[2024-03-27 11:36] LABS: CHLORIDE 105 mEq/L (98-107); SODIUM 135 mEq/L (136-145)
[2024-03-27 11:37] LABS: CALCIUM 8.3 mg/dL (8.7-10.4); CARBON DIOXIDE 24 mEq/L (21-32)
[2024-03-27 11:42] LABS: GLUCOSE 77 mg/dL (70-105); UREA NITROGEN BLOOD 25 mg/dL (9-23)
[2024-03-27 11:44] LABS: ALANINE AMINOTRANSFERASE 9 IU/L (10-49); ALBUMIN 2.5 g/dL (3.2-4.8); ASPARTATE AMINOTRANSFERASE 38 IU/L (<34); BILIRUBIN TOTAL 1.5 mg/dL (0.1-1.0); PROTEIN TOTAL 6.4 g/dL (6.0-8.3)
[2024-03-27] MEDS: CLONIDINE 0.1MG TABLET PO PRN (16:00)
[2024-03-27] MEDS: RACEPINEPHRINE 2.25% 0.5ML NEB VIAL HHN PRN (21:35)
[2024-03-27 23:23] LABS: BG BASE EXCESS 2.4 mmol/L (-2.0-3.0); BG CARBOXYHEMOGLOBIN 2.1 % (0.5-1.5); BG DEOXYHEMOGLOBIN 9.9 % (0.0-5.0); BG FRACTION INSPIRED OXYGEN 32; BG HCO3 ACT 26.1 mmol/L (21.0-28.0); BG METHEMOGLOBIN 0.4 % (0.5-1.5); BG OXYGEN SATURATION 89.8 % (94.0-98.0); BG OXYHEMOGLOBIN 87.6 % (94.0-98.0); BG PCO2 36.8 mmHg (32.0-45.0); BG PH 7.469 (7.350-7.450); BG PO2 54.8 mmHg (83.0-108.0); BG SAMPLE SITE RIGHT RADIAL; BG TOTAL HEMOGLOBIN 9.7 g/dL (12.0-16.0); BG VENT MODE NASAL CANNULA
== END 2024-03-27 23:17 | disposition short-term general hospital (02) | DRG 73 ==
PROVIDERS: ADMIT Psychiatry & Neurology Neurology; ATTEND Internal Medicine
DX: G62.81 Critical illness polyneuropathy (principal); A41.9 Sepsis, unspecified organism; G93.41 Metabolic encephalopathy; J18.9 Pneumonia, unspecified organism; J96.01 Acute respiratory failure with hypoxia; J96.02 Acute respiratory failure with hypercapnia; R57.8 Other shock; E87.0 Hyperosmolality and hypernatremia; J91.8 Pleural effusion in other conditions classified elsewhere; K92.2 Gastrointestinal hemorrhage, unspecified; N17.9 Acute kidney failure, unspecified; R18.8 Other ascites; I82.621 Acute embolism and thrombosis of deep veins of right upper extremity; T17.890A Other foreign object in other parts of respiratory tract causing asphyxiation, initial encounter; B37.49 Other urogenital candidiasis; E78.5 Hyperlipidemia, unspecified; E87.5 Hyperkalemia; I07.1 Rheumatic tricuspid insufficiency; I11.0 Hypertensive heart disease with heart failure; I48.91 Unspecified atrial fibrillation; I50.82 Biventricular heart failure; R56.9 Unspecified convulsions; R00.1 Bradycardia, unspecified; R05.9 Cough, unspecified; R42 Dizziness and giddiness; R90.82 White matter disease, unspecified; G72.89 Other specified myopathies; L89.159 Pressure ulcer of sacral region, unspecified stage; D64.9 Anemia, unspecified; R32 Unspecified urinary incontinence; R13.10 Dysphagia, unspecified; K56.41 Fecal impaction; K74.60 Unspecified cirrhosis of liver; W44.F9XA Other object of natural or organic material, entering into or through a natural orifice, initial encounter; Z79.84 Long term (current) use of oral hypoglycemic drugs; Z79.899 Other long term (current) drug therapy; Z86.73 Personal history of transient ischemic attack (TIA), and cerebral infarction without residual deficits; Z86.79 Personal history of other diseases of the circulatory system; Z74.01 Bed confinement status; Y93.89 Activity, other specified; Y92.89 Other specified places as the place of occurrence of the external cause; Y99.8 Other external cause status
CPT/HCPCS: 36415; 36600; 80053; 82375; 82805; 85025; 92523; 92610; 94640; 97163; 97166; 97530; 97535; J1650

== ENCOUNTER 2024-03-27 23:45 | Inpatient (IN) | payer MEDICARE, MEDICAID ==
[~2024-03-27] VITALS: Ht 167.6 cm; Wt 78.6 kg
[2024-03-28] VITALS (11 sets, daily range): BP systolic 106–211; BP diastolic 45–85; PULSE 58–63; RESP 12–21; TEMP 36.22512–36.8072; O2SAT 94–100
[2024-03-28] MEDS ORDERED: MAGNESIUM HYDROXIDE 400MG/5ML 30ML UDC PO PRN (03:00)
[2024-03-28] MEDS ORDERED: ONDANSETRON HCL 4MG/2ML INJ IV PRN (03:00)
[2024-03-28] MEDS ORDERED: SENNOSIDES/DOCUSATE SOD 8.6/50MG TABLET PO PRN (03:00)
[2024-03-28] MEDS ORDERED: RACEPINEPHRINE 2.25% 0.5ML NEB VIAL HHN PRN (03:00)
[2024-03-28] MEDS ORDERED: PHENOL/SODIUM PHENOLATE 1.4% SRPAY 177ML MM PRN (03:00)
[2024-03-28] MEDS: GABAPENTIN 100MG CAPSULE PO SCH (08:00)
[2024-03-28] MEDS: IPRATROPIUM/ALBUTEROL 0.5-3(2.5)MG/3ML NEB HHN SCH (08:20)
[2024-03-28] MEDS: ACETYLCYSTEINE 200MG/ML 20% VIAL 4ML INH SCH (08:20)
[2024-03-28] MEDS: PANTOPRAZOLE SODIUM 40 MG/VIAL IV SCH (08:43)
[2024-03-28] MEDS: MEGESTROL ACETATE 400 MG/10 ML UDC PO SCH (08:43)
[2024-03-28] MEDS: ENOXAPARIN 80MG/0.8ML SYR SUBCUT SCH (08:44)
[2024-03-28] MEDS: DULOXETINE HCL 30MG DR CAPSULE PO SCH (08:48)
[2024-03-28] MEDS ORDERED: ZINC OXIDE 20% OINT 30GM TOP PRN (09:00)
[2024-03-28 09:12] LABS: BG CARBOXYHEMOGLOBIN 2.1 % (0.5-1.5); BG DEOXYHEMOGLOBIN 6.5 % (0.0-5.0); BG FRACTION INSPIRED OXYGEN 32; BG HCO3 ACT 24.2 mmol/L (21.0-28.0); BG METHEMOGLOBIN 0.7 % (0.5-1.5); BG OXYGEN SATURATION 93.3 % (94.0-98.0); BG OXYHEMOGLOBIN 90.7 % (94.0-98.0); BG PCO2 37.4 mmHg (32.0-45.0); BG PH 7.429 (7.350-7.450); BG PO2 65.1 mmHg (83.0-108.0); BG SAMPLE SITE RIGHT BRACHIAL; BG TOTAL HEMOGLOBIN 9.9 g/dL (12.0-16.0); BG VENT MODE NASAL CANNULA
[2024-03-28] MEDS: CLONIDINE 0.1MG TABLET PO PRN (16:00)
[2024-03-28 21:12] LABS: HEMATOCRIT. 28.9 % (36.0-48.0); HEMOGLOBIN. 9.4 g/dL (12.0-16.0); MEAN CORPUSCULAR HEMOGLOBIN 32.1 pg (28.0-32.0); MEAN CORPUSCULAR HGB CONC 32.6 g/dL (31.0-37.0); MEAN CORPUSCULAR VOLUME 98.4 fL (81.0-99.0); MEAN PLATELET VOLUME 7.9 fl (7.4-10.4); PLATELET 221 x1000/uL (130-400); RED BLOOD CELL COUNT 2.94 mill/uL (4.2-5.4); RED CELL DISTRIBUTION WIDTH 27.2 % (11.6-14.6); WHITE BLOOD COUNT 7.6 x1000/uL (4.5-11.0)
[2024-03-28 21:13] LABS: DIFFERENTIAL COMMENT 1
[2024-03-28 21:25] LABS: PHOSPHORUS 2.7 mg/dL (2.5-4.9)
[2024-03-29] VITALS (17 sets, daily range): BP systolic 104–171; BP diastolic 40–97; PULSE 55–70; RESP 13–23; TEMP 36.28068–36.6696; O2SAT 92–97
[2024-03-29] MEDS: HYDRALAZINE 20MG/ML VIAL IV NR (00:09)
[2024-03-29 02:21] LABS: PLATELET ESTIMATE NORMAL
[2024-03-29] MEDS: HYDRALAZINE 20MG/ML VIAL IV PRN (02:49)
[2024-03-29] MEDS: ACETAMINOPHEN 650MG/20.3ML UDC PO PRN (07:32)
[2024-03-29 10:40] LABS: ANISOCYTOSIS 3+
[2024-03-29] MEDS: FUROSEMIDE 40MG/4ML VIAL IVP SCH (14:25)
[2024-03-29] MEDS: AMLODIPINE 10MG TABLET PO SCH (16:01)
[2024-03-29 16:51] LABS: POTASSIUM 4.6 mEq/L (3.5-5.1)
[2024-03-29 16:52] LABS: CALCIUM 8.3 mg/dL (8.7-10.4)
[2024-03-29 16:57] LABS: CREATININE 1.1 mg/dL (0.6-1.0)
[2024-03-29 17:15] LABS: HEMATOCRIT 27.9 % (36.0-48.0); HEMOGLOBIN 9.1 g/dL (12.0-16.0); MEAN CORPUSCULAR HEMOGLOBIN 31.8 pg (28.0-32.0); MEAN CORPUSCULAR HGB CONC 32.5 g/dL (31.0-37.0); MEAN CORPUSCULAR VOLUME 97.8 fL (81.0-99.0); PLATELET 229 x1000/uL (130-400); RED BLOOD CELL COUNT 2.85 mill/uL (4.2-5.4); RED CELL DISTRIBUTION WIDTH 26.7 % (11.6-14.6); WHITE BLOOD COUNT 7.1 x1000/uL (4.5-11.0)
[2024-03-30] VITALS (10 sets, daily range): BP systolic 129–157; BP diastolic 41–81; PULSE 62–72; RESP 14–26; TEMP 35.78064–36.9474; O2SAT 91–97
[2024-03-30 06:58] LABS: CALCIUM 8.4 mg/dL (8.7-10.4); POTASSIUM 4.9 mEq/L (3.5-5.1)
[2024-03-30 07:04] LABS: CREATININE 1.2 mg/dL (0.6-1.0)
[2024-03-30 07:32] LABS: HEMATOCRIT 28.8 % (36.0-48.0); MEAN CORPUSCULAR HEMOGLOBIN 31.9 pg (28.0-32.0); MEAN CORPUSCULAR HGB CONC 31.2 g/dL (31.0-37.0); MEAN CORPUSCULAR VOLUME 102.2 fL (81.0-99.0); PLATELET 223 x1000/uL (130-400); RED BLOOD CELL COUNT 2.82 mill/uL (4.2-5.4); RED CELL DISTRIBUTION WIDTH 27.6 % (11.6-14.6); WHITE BLOOD COUNT 7.4 x1000/uL (4.5-11.0)
[2024-03-30] MEDS: ZINC SULFATE 220 MG ( 50 ) CAPSULE PO SCH (09:27)
[2024-03-30] MEDS: MULTIVITAMINS,THER W-MINERALS TABLET PO SCH (09:28)
[2024-03-30] MEDS: FAMOTIDINE 20MG/2ML VIAL IV SCH (09:28)
[2024-03-30] MEDS: ASCORBIC ACID 500 MG TABLET PO SCH (09:28)
[2024-03-30 18:41] LABS: CLARITY URINE CLEAR (CLEAR); GLUCOSE URINE NEGATIVE (NEGATIVE); KETONES URINE NEGATIVE (NEGATIVE); LEUKOCYTE ESTERASE URINE TRACE (NEGATIVE); NITRITE URINE NEGATIVE (NEGATIVE); OCCULT BLOOD URINE 3+ (NEGATIVE); PH URINE 5.5 (4.5-8.0); PROTEIN URINE TRACE (NEGATIVE); SPECIFIC GRAVITY URINE 1.011 (1.005-1.030)
[2024-03-30] MEDS: FUROSEMIDE 40MG/4ML VIAL IVP SCH (19:05)
[2024-03-30 19:21] LABS: COLOR URINE ch449793 (YELLOW)
[2024-03-30 19:22] LABS: RBC URINE 15-25 /hpf (0-2); SQUAMOUS EPITHELIAL CELL URINE 1+ /lpf (RARE/1+)
[2024-03-30 19:23] LABS: BACTERIA URINE 3+; HYALINE CASTS URINE 0-5 /lpf
[2024-03-31] VITALS (11 sets, daily range): BP systolic 148–175; BP diastolic 75–99; PULSE 67–73; RESP 16–21; TEMP 36.00288–37.05852; O2SAT 93–97
[2024-03-31 06:30] LABS: CARBON DIOXIDE 25 mEq/L (21-32); CHLORIDE 105 mEq/L (98-107); POTASSIUM 4.4 mEq/L (3.5-5.1); SODIUM 136 mEq/L (136-145)
[2024-03-31 06:31] LABS: CALCIUM 8.2 mg/dL (8.7-10.4)
[2024-03-31 06:36] LABS: ALANINE AMINOTRANSFERASE 7 IU/L (10-49); CREATININE 1.1 mg/dL (0.6-1.0); GLUCOSE 81 mg/dL (70-105); UREA NITROGEN BLOOD 32 mg/dL (9-23)
[2024-03-31 06:37] LABS: ALBUMIN 2.5 g/dL (3.2-4.8); ASPARTATE AMINOTRANSFERASE 38 IU/L (<34)
[2024-03-31 06:38] LABS: BILIRUBIN TOTAL 1.3 mg/dL (0.1-1.0); PROTEIN TOTAL 6.3 g/dL (6.0-8.3)
[2024-03-31 07:18] LABS: PARTIAL THROMBOPLASTIN TIME 32.7 sec (23.4-31.0); PROTHROMBIN TIME 11.5 sec (9.6-11.0)
[2024-03-31] MEDS: METOLAZONE 2.5MG TABLET PO SCH (09:00)
[2024-03-31 11:47] LABS: HEMATOCRIT. 27.6 % (36.0-48.0); HEMOGLOBIN. 8.5 g/dL (12.0-16.0); MEAN CORPUSCULAR HEMOGLOBIN 31.4 pg (28.0-32.0); MEAN CORPUSCULAR VOLUME 101.5 fL (81.0-99.0); MEAN PLATELET VOLUME 8.1 fl (7.4-10.4); PLATELET 238 x1000/uL (130-400); RED BLOOD CELL COUNT 2.72 mill/uL (4.2-5.4); RED CELL DISTRIBUTION WIDTH 27.1 % (11.6-14.6); WHITE BLOOD COUNT 6.4 x1000/uL (4.5-11.0)
[2024-03-31 11:59] LABS: DIFFERENTIAL COMMENT 1
[2024-03-31] MEDS ORDERED: MAGNESIUM HYDROXIDE 400MG/5ML 30ML UDC PO PRN (13:15)
[2024-03-31] MEDS: SENNOSIDES/DOCUSATE SOD 8.6/50MG TABLET PO SCH (13:40)
[2024-03-31] MEDS: POLYETHYLENE GLYCOL 3350 (17GM) 1 DOSE PACK PO SCH (13:48)
[2024-03-31 20:30] LABS: ANISOCYTOSIS 2+; PLATELET ESTIMATE NORMAL
[2024-03-31] MEDS: NA PHOS,M-B/NA PHOS,DI-BA ENEMA 118ML PR PRN (22:15)
[2024-04-01] VITALS (26 sets, daily range): BP systolic 118–153; BP diastolic 47–108; PULSE 68–76; RESP 15–29; TEMP 36.28068–37.28076; O2SAT 90–99
[2024-04-01 11:00] LABS: ALBUMIN 2.5 g/dL (3.2-4.8)
[2024-04-01 11:21] LABS: PREALBUMIN < 5.0 mg/dl (10.0-40.0)
[2024-04-02] VITALS (8 sets, daily range): BP systolic 116–203; BP diastolic 52–106; PULSE 68–72; RESP 14–21; TEMP 36.55848–36.83628; O2SAT 97–100
[2024-04-02 10:29] LABS: HEMATOCRIT 31.9 % (36.0-48.0)
[2024-04-02] MEDS: FUROSEMIDE 40MG TABLET PO SCH (13:47)
[2024-04-02 17:47] LABS: POTASSIUM 4.8 mEq/L (3.5-5.1)
[2024-04-02 17:49] LABS: CALCIUM 8.3 mg/dL (8.7-10.4)
[2024-04-02] MEDS: FAMOTIDINE 20MG TABLET PO SCH (21:48)
[2024-04-03] VITALS (11 sets, daily range): BP systolic 126–178; BP diastolic 64–101; PULSE 67–73; RESP 14–20; TEMP 36.22512–36.6696; O2SAT 95–99
[2024-04-04] VITALS: BP 157/88; PULSE 73; RESP 17; TEMP 36.6696; O2SAT 95
[2024-04-04 04:00] VITALS: BP 159/82; PULSE 72; RESP 16; TEMP 36.6696; O2SAT 95
[2024-04-04 08:00] VITALS: BP 153/78; PULSE 71; RESP 18; TEMP 36.16956; O2SAT 96
[2024-04-04 16:00] VITALS: BP 161/63; PULSE 76; RESP 18; TEMP 36.22512; O2SAT 96
[2024-04-04] MEDS ORDERED: HYDRALAZINE 10 MG in SODIUM CHLORIDE 0.9% 49.5 ML IV PRN (19:30)
[2024-04-04 20:00] VITALS: BP 177/75; PULSE 75; RESP 18; TEMP 36.22512; O2SAT 90
[2024-04-05] VITALS (7 sets, daily range): BP systolic 128–178; BP diastolic 50–80; PULSE 64–71; RESP 17–20; TEMP 36.05844–36.6696; O2SAT 90–100
[2024-04-05] MEDS: FAMOTIDINE 20MG TABLET PO SCH (11:16)
[2024-04-06] VITALS: BP 113/80; PULSE 64; RESP 18; TEMP 36.22512; O2SAT 100
[2024-04-06 04:00] VITALS: BP 164/65; PULSE 67; RESP 18; TEMP 36.50292; O2SAT 93
[2024-04-06 08:00] VITALS: BP 176/86; PULSE 68; RESP 20; TEMP 36.22512; O2SAT 100
[2024-04-06 12:00] VITALS: BP 158/69; PULSE 71; RESP 18; TEMP 36.22512; O2SAT 100
[2024-04-06 16:00] VITALS: BP 156/75; PULSE 61; RESP 21; TEMP 36.16956; O2SAT 96
[2024-04-06 20:00] VITALS: BP 171/81; PULSE 73; RESP 19; TEMP 37.11408; O2SAT 95
[2024-04-07] VITALS: BP 178/76; PULSE 74; RESP 19; TEMP 36.33624; O2SAT 94
[2024-04-07 04:00] VITALS: BP 159/74; PULSE 72; RESP 18; TEMP 36.72516; O2SAT 82
[2024-04-07 08:00] VITALS: BP 163/74; PULSE 70; RESP 18; TEMP 36.22512; O2SAT 97
[2024-04-07] MEDS: FUROSEMIDE 40MG TABLET PO SCH (08:49)
[2024-04-07] MEDS ORDERED: HYDROXYZINE 10MG TABLET PO PRN (10:00)
[2024-04-07 11:49] LABS: POTASSIUM 4.4 mEq/L (3.5-5.1)
[2024-04-07 11:50] LABS: CALCIUM 8.6 mg/dL (8.7-10.4)
[2024-04-07 11:55] LABS: CREATININE 1.1 mg/dL (0.6-1.0)
[2024-04-07 12:00] VITALS: BP 119/71; PULSE 70; RESP 20; TEMP 36.16956; O2SAT 97
[2024-04-07 12:51] LABS: CLARITY URINE TURBID (CLEAR); COLOR URINE YELLOW (YELLOW); GLUCOSE URINE NEGATIVE (NEGATIVE); KETONES URINE NEGATIVE (NEGATIVE); LEUKOCYTE ESTERASE URINE 3+ (NEGATIVE); NITRITE URINE NEGATIVE (NEGATIVE); OCCULT BLOOD URINE 3+ (NEGATIVE); PH URINE 6.5 (4.5-8.0); PROTEIN URINE 1+ (NEGATIVE); SPECIFIC GRAVITY URINE 1.005 (1.005-1.030)
[2024-04-07 13:06] LABS: BACTERIA URINE 2+; SQUAMOUS EPITHELIAL CELL URINE 1+ /lpf (RARE/1+); WBC URINE 50-100 /hpf (0-2); YEAST URINE NONE SEEN
[2024-04-07 16:00] VITALS: BP_SYST 127; BP_SYST 197; BP_DIAS 64; BP_DIAS 71; PULSE 66; RESP 18; TEMP 36.16956; O2SAT 97
[2024-04-07] MEDS ORDERED: ASCO500T20 PO (18:58)
[2024-04-07] MEDS ORDERED: HYDR-3782 PO (18:58)
[2024-04-07] MEDS ORDERED: AMLO10TA80 PO (18:58)
[2024-04-07] MEDS ORDERED: POLY17PO43 PO (18:58)
[2024-04-07] MEDS ORDERED: DULO30CA2 PO (18:58)
[2024-04-07] MEDS ORDERED: ZINC1CAP2 PO (18:58)
[2024-04-07] MEDS ORDERED: MEGE400O46 PO (18:58)
[2024-04-07] MEDS ORDERED: SENN1TAB35 PO (18:58)
[2024-04-07] MEDS ORDERED: GABA-529 PO (18:58)
[2024-04-07] MEDS ORDERED: METO2.5T2 PO (18:58)
[2024-04-07] MEDS ORDERED: WHEA152P PO (18:58)
[2024-04-07 20:00] VITALS: BP 147/60; PULSE 67; RESP 19; TEMP 36.72516; O2SAT 19; O2SAT 96
[2024-04-08 00:05] VITALS: BP 125/53; PULSE 69; RESP 18; TEMP 36.55848; O2SAT 97
[2024-04-08 04:00] VITALS: BP 123/69; PULSE 62; RESP 18; TEMP 36.50292; O2SAT 96
[2024-04-08 08:00] VITALS: BP 128/54; PULSE 62; RESP 20; TEMP 35.94732; O2SAT 96
[2024-04-08] MEDS ORDERED: SULF1TAB48 PO (08:52)
[2024-04-08] MEDS ORDERED: SULFAMETHOXAZOLE/TRIMETHOPRIM 800/160MG TABLET PO SCH (09:00)
[2024-04-08] MEDS ORDERED: CEFTRIAXONE 1GM/50ML 50 ML IV SCH (10:00)
[2024-04-08] MEDS: CEFTRIAXONE SODIUM 1G VIAL IM NR (10:19)
[2024-04-08 12:00] VITALS: BP 112/51; PULSE 68; RESP 20; TEMP 36.114; O2SAT 98
[2024-04-08 16:00] VITALS: BP 118/53; PULSE 65; RESP 20; TEMP 36.16956; O2SAT 99
[2024-04-08 17:16] VITALS: BP 118/53; PULSE 65; TEMP 97.1; O2SAT 99
== END 2024-04-08 19:25 | disposition home health service (06) | DRG 853 ==
LOC: 5EST 23:45 → 6WST 04-04 03:07
PROVIDERS: ADMIT Internal Medicine; ATTEND Internal Medicine
PROC: 5A09357 Assistance with Respiratory Ventilation, Less than 24 Consecutive Hours, Continuous Positive Airway Pressure (ICD-10-PCS; 2024-03-31)
PROC: 0JB70ZZ Excision of Back Subcutaneous Tissue and Fascia, Open Approach (ICD-10-PCS; principal; 2024-04-02)
DX: A41.9 Sepsis, unspecified organism (principal); G93.41 Metabolic encephalopathy; L89.153 Pressure ulcer of sacral region, stage 3; J96.01 Acute respiratory failure with hypoxia; J96.02 Acute respiratory failure with hypercapnia; J69.0 Pneumonitis due to inhalation of food and vomit; K68.3 Retroperitoneal hematoma; J18.9 Pneumonia, unspecified organism; R57.8 Other shock; R18.8 Other ascites; E87.1 Hypo-osmolality and hyponatremia; I50.22 Chronic systolic (congestive) heart failure; B37.49 Other urogenital candidiasis; E87.0 Hyperosmolality and hypernatremia; K92.2 Gastrointestinal hemorrhage, unspecified; I82.621 Acute embolism and thrombosis of deep veins of right upper extremity; Z68.41 Body mass index [BMI] 40.0-44.9, adult; N17.9 Acute kidney failure, unspecified; K76.6 Portal hypertension; I13.0 Hypertensive heart and chronic kidney disease with heart failure and stage 1 through stage 4 chronic kidney disease, or unspecified chronic kidney disease; T17.990A Other foreign object in respiratory tract, part unspecified in causing asphyxiation, initial encounter; I48.91 Unspecified atrial fibrillation; E87.5 Hyperkalemia; K74.60 Unspecified cirrhosis of liver; N18.31 Chronic kidney disease, stage 3a; I50.82 Biventricular heart failure; E78.5 Hyperlipidemia, unspecified; W44.F9XA Other object of natural or organic material, entering into or through a natural orifice, initial encounter; D53.9 Nutritional anemia, unspecified; S31.000A Unspecified open wound of lower back and pelvis without penetration into retroperitoneum, initial encounter; X58.XXXA Exposure to other specified factors, initial encounter; K76.9 Liver disease, unspecified; E11.22 Type 2 diabetes mellitus with diabetic chronic kidney disease; I25.10 Atherosclerotic heart disease of native coronary artery without angina pectoris; K56.41 Fecal impaction; Z74.01 Bed confinement status; Z86.73 Personal history of transient ischemic attack (TIA), and cerebral infarction without residual deficits; Y93.89 Activity, other specified; Y92.89 Other specified places as the place of occurrence of the external cause; Y99.8 Other external cause status
CPT/HCPCS: 36415; 36600; 71045; 74176; 76705; 80048; 80053; 81003; 82040; 82375; 82805; 82962; 83520; 83735; 83880; 84100; 84134; 84145; 85014; 85018; 85025; 85027; 87077; 87186; 94618; 94640; 94660; 97163; 97166; 97530; 97535; A4606; A4663; A6261; C1893; J0360; J0696; J1650; J1940; J2470; J3490; J7608